=== PATIENT | female | born 1940 | race Asian ===

== ENCOUNTER 2016-05-05 09:33 | Outpatient (CLI) | payer OTHER ==
[~2016-05-05 09:33] MED LIST: ALPR0.2566 PO; AMLO10TA PO; AMLO2.5T PO; BISACODYL LAXAT10 MG RE; CADUET10 MG/10 M PO; CLINDAMYCIN300 MG PO; DIOVAN320 MG PO; DIVA500T2 PO; FENT25DI TD; FERROUS SULF325 M1 PO; FURO40TA93 PO; GABA300C2 PO; INSUINJ20 SC; K-TAB20 MEQ PO; LEVO0.0723 PO; LORCET 5-325 MG1 TAB PO; LORTAB1 TAB PO; METO50TA63 PO; METO5TAB38 PO; MICRO-K10 MEQ OR; MULT1 PO; MYLANTA OR; NOVOLOG MIX 70/30 PR SC; NYST100016 TOP; OMEP20CA PO; ORAZINC110 MG OR; PANT40TA PO; PRAVACHOL20 MG PO; RANI150T78 PO; REQUIP0.25 MG OR; RISP0.25 PO; SENNALAX S PO; SIMV40TA57 PO; VITAMIN D400 UNIT OR; WARF2.5T8 PO; WARF5TAB6 PO; ZINC PO; [UNRECOGNIZED DRUG - OTHER] OR
== END 2016-05-05 19:47 | disposition home or self-care (01) ==
LOC: LAB 09:33
DX: Z79.01 Long term (current) use of anticoagulants (principal); Z51.81 Encounter for therapeutic drug level monitoring
CPT/HCPCS: 85610

== ENCOUNTER 2016-11-19 13:54 | Outpatient (CLI) | payer OTHER ==
[2016-11-19] MEDS ORDERED: ALPR0.5T24 PO (16:11)
[2016-11-19] MEDS ORDERED: FENT25DI TD (16:11)
[2016-11-19] MEDS ORDERED: KETO10TA34 PO (16:12)
[2016-11-19] MEDS ORDERED: FURO40TA93 PO (16:13)
[2016-11-19] MEDS ORDERED: WARF5TAB6 PO (16:16)
[2016-11-19] MEDS ORDERED: WARF3TAB12 PO (16:16)
== END 2016-11-19 14:10 | disposition short-term general hospital (02) ==
LOC: AMB 13:54
DX: R53.1 Weakness (principal)
CPT/HCPCS: A0425; A0427

== ENCOUNTER 2016-11-19 14:18 | Inpatient (IN) | payer OTHER ==
[~2016-11-19] VITALS: Ht 160 cm; Wt 134.4 kg
[2016-11-19] VITALS (19 sets, daily range): BP systolic 91–166; BP diastolic 40–81; TEMP 98.5–99.9; Ht 160 cm; Wt 134.4 kg
[2016-11-19 15:49] LABS: PLATELET COUNT 246 K/uL (152-353)
[2016-11-19] MEDS ORDERED: FENT25DI TD (16:11)
[2016-11-19] MEDS ORDERED: ALPR0.5T24 PO (16:11)
[2016-11-19] MEDS ORDERED: KETO10TA34 PO (16:12)
[2016-11-19] MEDS ORDERED: FURO40TA93 PO (16:13)
[2016-11-19] MEDS ORDERED: WARF5TAB6 PO (16:16)
[2016-11-19] MEDS ORDERED: WARF3TAB12 PO (16:16)
[2016-11-19 16:34] LABS: POTASSIUM 6.4 mmol/L (3.6-5.2)
[2016-11-20] VITALS (8 sets, daily range): BP systolic 99–186; BP diastolic 38–87; TEMP 98.3–100.1
[2016-11-20 05:35] LABS: PLATELET COUNT 189 K/uL (152-353)
[2016-11-20 05:53] LABS: POTASSIUM 5.6 mmol/L (3.6-5.2)
[2016-11-21] VITALS: BP 175/56; TEMP 100.5
[2016-11-21 04:00] VITALS: BP 157/52; TEMP 99.4
[2016-11-21 04:29] LABS: PLATELET COUNT 201 K/uL (152-353)
[2016-11-21 04:36] LABS: POTASSIUM 4.6 mmol/L (3.6-5.2)
[2016-11-21 08:00] VITALS: BP 152/64; TEMP 98.4
[2016-11-21 12:00] VITALS: BP 151/67; TEMP 97.9
[2016-11-21 16:00] VITALS: BP 162/60; TEMP 98.2
[2016-11-21 20:00] VITALS: BP 171/60; TEMP 98.9
[2016-11-22] VITALS (22 sets, daily range): BP systolic 157–190; BP diastolic 48–93; TEMP 98.9–100.8
[2016-11-22 06:08] LABS: PLATELET COUNT 250 K/uL (152-353)
[2016-11-23] VITALS (17 sets, daily range): BP systolic 120–203; BP diastolic 68–97; TEMP 98.7–100
[2016-11-23 05:48] LABS: POTASSIUM 4.7 mmol/L (3.6-5.2)
[2016-11-23 05:49] LABS: PLATELET COUNT 249 K/uL (152-353)
[2016-11-23 06:32] LABS: PARTIAL THROMBOPLASTIN TIME 41.2 SECONDS (24.5-33.6)
[2016-11-24] VITALS (12 sets, daily range): BP systolic 161–199; BP diastolic 61–98; TEMP 98.6–100
[2016-11-24 05:32] LABS: PLATELET COUNT 258 K/uL (152-353)
[2016-11-24 06:19] LABS: POTASSIUM 4.1 mmol/L (3.6-5.2)
[2016-11-24] MEDS ORDERED: NOVOLOG MIX 70/30 PR SC ×2 (12:19→12:22)
[2016-11-24] MEDS ORDERED: INSUINJ47 SC ×2 (12:23)
[2016-11-25] VITALS (17 sets, daily range): BP systolic 148–205; BP diastolic 52–97; TEMP 99.5–100.4
[2016-11-25 05:31] LABS: PLATELET COUNT 275 K/uL (152-353)
[2016-11-25 05:50] LABS: POTASSIUM 4.2 mmol/L (3.6-5.2)
[2016-11-26] VITALS (21 sets, daily range): BP systolic 105–210; BP diastolic 63–126; TEMP 99–100.4
[2016-11-26 06:39] LABS: PLATELET COUNT 268 K/uL (152-353)
[2016-11-26 06:52] LABS: POTASSIUM 3.6 mmol/L (3.6-5.2)
[2016-11-27] VITALS (20 sets, daily range): BP systolic 106–189; BP diastolic 56–103; TEMP 96.5–100.6
[2016-11-27 06:35] LABS: POTASSIUM 3.3 mmol/L (3.6-5.2)
[2016-11-27 06:57] LABS: PLATELET COUNT 277 K/uL (152-353)
[2016-11-28] VITALS (21 sets, daily range): BP systolic 143–185; BP diastolic 57–90; TEMP 98–99
[2016-11-28 05:19] LABS: PLATELET COUNT 255 K/uL (152-353)
[2016-11-28 05:40] LABS: POTASSIUM 3.1 mmol/L (3.6-5.2)
[2016-11-29] VITALS (9 sets, daily range): BP systolic 139–191; BP diastolic 57–89; TEMP 98.4–99.1
[2016-11-29 07:43] LABS: PLATELET COUNT 299 K/uL (152-353)
[2016-11-29 08:07] LABS: POTASSIUM 3.1 mmol/L (3.6-5.2)
[2016-11-30] VITALS: BP 168/59; TEMP 99.2
[2016-11-30 04:00] VITALS: BP 174/52; TEMP 98.8
[2016-11-30 08:00] VITALS: BP 156/55; TEMP 99.4
[2016-11-30 08:00] LABS: PLATELET COUNT 284 K/uL (152-353)
[2016-11-30 11:54] VITALS: BP 187/74; TEMP 99.3
[2016-11-30 15:59] VITALS: BP 182/61; TEMP 98.9
[2016-11-30 20:26] VITALS: BP 184/63; TEMP 99.3
[2016-12-01] VITALS: BP 168/57; TEMP 99.1
[2016-12-01 04:00] VITALS: BP 183/58; TEMP 98.9
[2016-12-01 06:14] LABS: POTASSIUM 2.9 mmol/L (3.6-5.2)
[2016-12-01 06:46] LABS: PLATELET COUNT 336 K/uL (152-353)
[2016-12-01 08:00] VITALS: BP 159/66; TEMP 98
[2016-12-01 12:00] VITALS: BP 192/97; TEMP 97.8
[2016-12-01 16:00] VITALS: BP 136/72; TEMP 98
[2016-12-01 20:00] VITALS: BP 190/62; TEMP 99.4
[2016-12-02] VITALS: BP 161/59; TEMP 99.9
[2016-12-02 04:00] VITALS: BP 142/64; TEMP 99.6
[2016-12-02 06:41] LABS: PLATELET COUNT 337 K/uL (152-353)
[2016-12-02 06:47] LABS: POTASSIUM 3.1 mmol/L (3.6-5.2)
[2016-12-02 08:00] VITALS: BP 190/65; TEMP 98
[2016-12-02 12:00] VITALS: BP 153/76; TEMP 98.3
[2016-12-02 16:00] VITALS: BP 198/77; TEMP 97.8
== END 2016-12-02 17:37 | disposition swing bed (61) | DRG 871 ==
LOC: ED 14:18 → ICU 17:31 → MED/SURG 11-20 16:30 → ICU 11-22 09:10 → MED/SURG 11-29 12:50
PROVIDERS: Emergency Medicine; Internal Medicine; ADMIT Specialist
PROC: 02HV33Z Insertion of Infusion Device into Superior Vena Cava, Percutaneous Approach (ICD-10-PCS; 2016-11-23)
PROC: 30243N1 Transfusion of Nonautologous Red Blood Cells into Central Vein, Percutaneous Approach (ICD-10-PCS; principal; 2016-11-25)
DX: A41.89 Other specified sepsis (principal); J96.02 Acute respiratory failure with hypercapnia; L03.116 Cellulitis of left lower limb; L03.115 Cellulitis of right lower limb; N17.8 Other acute kidney failure; M62.82 Rhabdomyolysis; E87.4 Mixed disorder of acid-base balance; E87.5 Hyperkalemia; I12.9 Hypertensive chronic kidney disease with stage 1 through stage 4 chronic kidney disease, or unspecified chronic kidney disease; N18.3 Chronic kidney disease, stage 3 (moderate); E03.8 Other specified hypothyroidism; E66.01 Morbid (severe) obesity due to excess calories; M15.8 Other polyosteoarthritis; I89.0 Lymphedema, not elsewhere classified; E11.40 Type 2 diabetes mellitus with diabetic neuropathy, unspecified; D64.89 Other specified anemias; E83.42 Hypomagnesemia; E88.09 Other disorders of plasma-protein metabolism, not elsewhere classified; D72.828 Other elevated white blood cell count; B37.2 Candidiasis of skin and nail; E21.2 Other hyperparathyroidism; I50.9 Heart failure, unspecified
CPT/HCPCS: 36415; 36591; 36600; 80048; 80053; 81000; 82043; 82232; 82272; 82306; 82330; 82550; 82553; 82570; 82607; 82728; 82747; 82805; 82948; 82962; 83540; 83550; 83605; 83735; 83880; 83970; 84100; 84165; 84166; 84300; 84443; 84484; 84540; 85027; 85610; 85730; 86318; 86850; 86900; 86901; 86922; 87040; 87077; 87088; 87185; 87186; 87205; 93005; 93306; 94760; 96365; 96366; 96372; 99284; C1751; J0360; J1644; J1885; J1940; J2543; J3475; P9016; P9047

== ENCOUNTER 2016-12-02 17:37 | Inpatient (IN) | payer OTHER ==
[~2016-12-02] VITALS: Ht 160 cm; Wt 140.2 kg
[2016-12-02] VITALS: BP 113/69; TEMP 99.1
[~2016-12-02 17:37] MED LIST changes: +ALPR0.5T24 PO; +INSUINJ47 SC; +KETO10TA34 PO; +WARF3TAB12 PO
[2016-12-03 01:11] VITALS: BP 3/69; TEMP 99.1; Ht 160 cm; Wt 140.2 kg
[2016-12-03 20:00] VITALS: BP 185/70; TEMP 98.4
[2016-12-04 08:00] VITALS: BP 171/75; TEMP 98.4
[2016-12-04 20:00] VITALS: BP 179/64; TEMP 99
[2016-12-05 08:00] VITALS: BP 174/63; TEMP 98.8
[2016-12-05 20:00] VITALS: BP 192/65; TEMP 98.7
[2016-12-07 08:00] VITALS: BP 165/50; TEMP 98.6
[2016-12-07 11:05] LABS: PLATELET COUNT 335 K/uL (152-353)
[2016-12-07 11:26] LABS: POTASSIUM 5.4 mmol/L (3.6-5.2)
[2016-12-07 20:00] VITALS: BP 180/58; TEMP 99
[2016-12-08 09:02] VITALS: BP 176/68; TEMP 98.6
[2016-12-08 21:49] VITALS: BP 134/77; TEMP 98.5
[2016-12-09 05:56] LABS: PLATELET COUNT 281 K/uL (152-353)
[2016-12-09 06:06] LABS: POTASSIUM 4.7 mmol/L (3.6-5.2)
== END 2016-12-09 16:44 | disposition home health service (06) | DRG 556 ==
LOC: MED/SURG 17:37
PROVIDERS: ADMIT Internal Medicine
DX: M62.81 Muscle weakness (generalized) (principal); L03.116 Cellulitis of left lower limb; L03.115 Cellulitis of right lower limb; I50.9 Heart failure, unspecified; I89.0 Lymphedema, not elsewhere classified; N18.3 Chronic kidney disease, stage 3 (moderate)
CPT/HCPCS: 36415; 80053; 82948; 83735; 85027; 85610; 94760; J3475

== ENCOUNTER 2016-12-11 19:11 | Outpatient (CLI) | payer OTHER ==
[2016-12-12 04:06] LABS: POTASSIUM 4.5 mmol/L (3.6-5.2)
== END 2016-12-11 20:09 | disposition home or self-care (01) ==
LOC: LAB 19:11
PROVIDERS: Family Medicine
DX: Z79.01 Long term (current) use of anticoagulants (principal); E87.5 Hyperkalemia; E11.9 Type 2 diabetes mellitus without complications; N18.3 Chronic kidney disease, stage 3 (moderate)
CPT/HCPCS: 80048; 83735; 85014; 85018; 85610

== ENCOUNTER 2017-02-04 17:27 | Outpatient (CLI) | payer OTHER ==
[2017-02-04] MEDS ORDERED: POT CL MICRO20 MEQ OR (17:46)
[2017-02-04] MEDS ORDERED: MAGOX 400400 MG PO (17:47)
[2017-02-04] MEDS ORDERED: FE TABS325 MG OR (17:48)
[2017-02-04] MEDS ORDERED: FURO80TA4 PO (17:49)
[2017-02-04] MEDS ORDERED: AMLO2.5T PO (17:50)
== END 2017-02-04 17:31 | disposition short-term general hospital (02) ==
LOC: AMB 17:27
DX: R06.02 Shortness of breath (principal)
CPT/HCPCS: A0425; A0427

== ENCOUNTER 2017-02-04 17:31 | Inpatient (IN) | payer OTHER ==
[~2017-02-04] VITALS: Ht 160 cm; Wt 144.0 kg
[2017-02-04] MEDS ORDERED: POT CL MICRO20 MEQ OR (17:46)
[2017-02-04] MEDS ORDERED: MAGOX 400400 MG PO (17:47)
[2017-02-04] MEDS ORDERED: FE TABS325 MG OR (17:48)
[2017-02-04] MEDS ORDERED: FURO80TA4 PO (17:49)
[2017-02-04] MEDS ORDERED: AMLO2.5T PO (17:50)
[2017-02-04 17:52] VITALS: BP 224/83; TEMP 98.5
[2017-02-04 18:26] LABS: PLATELET COUNT 188 K/uL (152-353)
[2017-02-04 18:44] LABS: POTASSIUM 5.8 mmol/L (3.6-5.2); SODIUM 130 mmol/L (136-145)
[2017-02-04 23:24] VITALS: BP 167/54; TEMP 101.2; Ht 160 cm; Wt 144.0 kg
[2017-02-05] VITALS: BP 139/79; TEMP 101.1
[2017-02-05 04:00] VITALS: BP 142/61; TEMP 100.2
[2017-02-05 08:00] VITALS: BP 165/56; TEMP 98.8
[2017-02-05 09:41] LABS: PLATELET COUNT 133 K/uL (152-353)
[2017-02-05 10:24] LABS: POTASSIUM 6.1 mmol/L (3.6-5.2)
[2017-02-05 12:00] VITALS: BP 190/60; BP 198/63; TEMP 99; TEMP 99.2
[2017-02-05 16:00] VITALS: BP 198/63; TEMP 99.2
[2017-02-05 20:00] VITALS: BP 183/58; TEMP 98.8
[2017-02-06] VITALS: BP 198/63; TEMP 99.9
[2017-02-06 04:00] VITALS: BP 193/69; TEMP 99.2
[2017-02-06 07:46] LABS: POTASSIUM 5.4 mmol/L (3.6-5.2)
[2017-02-06 08:00] VITALS: BP 172/60; TEMP 98.8
[2017-02-06 08:14] LABS: PLATELET COUNT 142 K/uL (152-353)
[2017-02-06 12:00] VITALS: BP 178/48; TEMP 98.9
[2017-02-06 16:00] VITALS: BP 171/66; TEMP 98.5
[2017-02-06 20:00] VITALS: BP 170/79; TEMP 99
[2017-02-07] VITALS: BP 180/62; TEMP 99
[2017-02-07 04:00] VITALS: BP 170/68; TEMP 98.4
[2017-02-07 07:36] LABS: PLATELET COUNT 116 K/uL (152-353)
[2017-02-07 07:45] LABS: POTASSIUM 4.1 mmol/L (3.6-5.2)
== END 2017-02-07 13:30 | disposition home or self-care (01) | DRG 602 ==
LOC: ED 17:31 → MED/SURG 19:56
PROVIDERS: Specialist
PROC: 30233N1 Transfusion of Nonautologous Red Blood Cells into Peripheral Vein, Percutaneous Approach (ICD-10-PCS; principal; 2017-02-05)
DX: L03.115 Cellulitis of right lower limb (principal); I50.33 Acute on chronic diastolic (congestive) heart failure; N18.4 Chronic kidney disease, stage 4 (severe); E87.5 Hyperkalemia; E66.01 Morbid (severe) obesity due to excess calories; E11.9 Type 2 diabetes mellitus without complications; R07.89 Other chest pain; R06.02 Shortness of breath; E83.42 Hypomagnesemia; D64.89 Other specified anemias; B99.8 Other infectious disease
CPT/HCPCS: 36415; 36591; 36600; 80053; 81000; 82550; 82553; 82805; 82948; 83605; 83735; 83880; 84484; 85027; 85379; 85610; 85730; 86850; 86900; 86901; 86922; 87040; 87077; 87185; 87186; 87205; 93005; 94760; 96367; 96375; 99283; J1940; P9016

== ENCOUNTER 2017-02-16 10:39 | Outpatient (CLI) | payer OTHER ==
[~2017-02-16 10:39] MED LIST changes: +FE TABS325 MG OR; +FURO80TA4 PO; +MAGOX 400400 MG PO; +POT CL MICRO20 MEQ OR
[2017-02-16 11:06] LABS: POTASSIUM 4.2 mmol/L (3.6-5.2)
[2017-02-16 15:36] LABS: PLATELET COUNT 265 K/uL (152-353)
== END 2017-02-16 11:40 | disposition home or self-care (01) ==
LOC: LAB 10:39
PROVIDERS: Internal Medicine Nephrology
DX: I50.9 Heart failure, unspecified (principal); I48.0 Paroxysmal atrial fibrillation; N39.0 Urinary tract infection, site not specified; N18.4 Chronic kidney disease, stage 4 (severe); E11.9 Type 2 diabetes mellitus without complications
CPT/HCPCS: 80053; 81000; 82570; 83970; 84100; 84155; 85007; 85027; 87077; 87086; 87088; 87186

== ENCOUNTER 2017-02-25 10:49 | Outpatient (CLI) | payer OTHER ==
[2017-02-25 11:31] LABS: PLATELET COUNT 240 K/uL (152-353)
[2017-02-25 12:02] LABS: POTASSIUM 4.3 mmol/L (3.6-5.2)
== END 2017-02-25 11:50 | disposition home or self-care (01) ==
LOC: LAB 10:49
PROVIDERS: Family Medicine
DX: I48.91 Unspecified atrial fibrillation (principal); I50.22 Chronic systolic (congestive) heart failure; D64.89 Other specified anemias
CPT/HCPCS: 80048; 85027

== ENCOUNTER 2017-03-10 17:46 | Inpatient (IN) | payer OTHER ==
[~2017-03-10] VITALS: Ht 154.9 cm; Wt 130.4 kg
--- NOTE | 2017-03-10 18:18 | NUR ---
1820 PT ASSISTED TO ROOM 1102 VIA WC PER TECH. PT ALERT AND AWAKE. NO ACUTE DISTRESS NTOED.
[2017-03-10 22:24] LABS: PLATELET COUNT 180 K/uL (152-353)
[2017-03-10 22:34] LABS: POTASSIUM 4.1 mmol/L (3.6-5.2)
[2017-03-10 23:05] VITALS: BP 198/79; TEMP 98.8; Ht 154.9 cm; Wt 130.4 kg
[2017-03-11] VITALS: BP 180/78; TEMP 98
[2017-03-11] MEDS ORDERED: WARF4TAB7 PO (03:10)
[2017-03-11] MEDS ORDERED: FURO40TA93 PO (03:11)
[2017-03-11] MEDS ORDERED: ALPR0.5T24 PO (03:16)
[2017-03-11] MEDS ORDERED: NYST100010 TOP (03:20)
[2017-03-11] MEDS ORDERED: LATANOPROST0.005 % OPTH (03:23)
[2017-03-11 04:00] VITALS: BP 168/72; TEMP 98.1
--- NOTE | 2017-03-11 04:47 | NUR ---
03/10/17 AT 2245COLLECTED WOUND CULTURE FROM INNER, RIGHT LOWER LEG(UPPER CALF AREA). NOTE VERY SCANT AMOUNT OF CLEAR DRAINAGE WEEPING FROM LEG.
[2017-03-11 08:00] VITALS: BP 188/69; TEMP 98.9
[2017-03-11 12:00] VITALS: BP 192/85; TEMP 98.3
[2017-03-11 16:00] VITALS: BP 196/58; TEMP 98.3
[2017-03-11 20:00] VITALS: BP 192/76; TEMP 98.7
[2017-03-12] VITALS: BP 194/82; TEMP 98.2
[2017-03-12 04:00] VITALS: BP 196/82; TEMP 98.4
[2017-03-12 05:04] LABS: PLATELET COUNT 170 K/uL (152-353)
--- NOTE | 2017-03-12 06:11 | NUR ---
03/12/[address] GANDHI NOTIFIED OF PT HAVING POSTITIVE BLOOD CULTURE.ALSO NOTIFIED OF LAB PT 17.1,INR 1.62 NO NEW ORDERS RECEIVED.CC
--- NOTE | 2017-03-12 06:30 | NUR ---
03/12/17 [address] JIMENEZ HAS SEEN PT LEG IT IS DRAINING STATED HE NEEDS TO BE NOTIFED AGAIN IF NOT ALREADY SEEN PATIENT I TOLD HER THAT I WILL MAKE SURE THEY GET THE MESSAGE TO FOLLOW UP WITH DR. JIMENEZ ABOUT SEEING THE PATIENT.CC
[2017-03-12 08:00] VITALS: BP 190/81; TEMP 97
[2017-03-12 12:00] VITALS: BP 183/67; TEMP 97.9
[2017-03-12 16:00] VITALS: BP 183/72; TEMP 98
[2017-03-12 20:00] VITALS: BP 140/72; TEMP 97.4
[2017-03-13] VITALS: BP 150/76; TEMP 98.6
[2017-03-13 04:00] VITALS: BP 184/72; TEMP 98.6
[2017-03-13 05:57] LABS: PLATELET COUNT 181 K/uL (152-353)
[2017-03-13 08:00] VITALS: BP 166/67; TEMP 97.5
[2017-03-13 12:00] VITALS: BP 170/78; TEMP 97.6
[2017-03-13 16:00] VITALS: BP 179/74; TEMP 98
[2017-03-13 20:00] VITALS: BP 183/53; TEMP 97.5
[2017-03-14] VITALS (30 sets, daily range): BP systolic 116–195; BP diastolic 48–99; TEMP 93.1–99.2
[2017-03-14 05:14] LABS: PLATELET COUNT 175 K/uL (152-353)
--- NOTE | 2017-03-14 06:45 | NUR ---
PT ARRIVED TO ICU BED 3. PT IS UNCONSCIOUS AT THIS TIME AND DOES NOT RESPOND TO VERBAL STIMULIE. PT WAS ATTACHED TO MONITORS. VS ARE FOLLOWS - PULSE OX - 96%, HR - 70, BP - 159/77. PT IS ON O2 4LPM VIA NC. PT IS USING ACCESSORY MUSCLES FOR BREATHING. PUPILS ARE CONSTIRICTED AND NON RESPONSIVE. STERNUM RUB WAS USED TO TRY TO ATTEMPT TO GET PATIENT TO RESOND. NO RESPONSE FROM PATIENT. BREATH SOUNDS ARE DIMINISED THROUGHOUT BILATERALLY. S1 AND S2 HEART SOUNDS WERE NOTED UPON AUSCULTATION. BOWEL SOUNDS ARE PRESENT IN ALL FOUR QUADRANTS. THERE IS A 22G IV NOTED TO THE RIGHT HAND THAT IS SALINE LOCKED. SKIN TO THE ELBA LE'S ARE ROUGH AND RAISED AND EDEMATOUS. PEDAL PULSES ARE WEAK BILATERALLY.
--- NOTE | 2017-03-14 07:00 | NUR ---
RT AT BEDSIDE TO DRAW ABG
--- NOTE | 2017-03-14 07:04 | NUR ---
RT AT BEDSIDE TO PLACE PT ON BIPAP PER DR. ARCOS'S ORDERS.
--- NOTE | 2017-03-14 07:17 | NUR ---
EKG IN PROCESS
--- NOTE | 2017-03-14 07:17 | NUR ---
DR. BROWN AT BEDSIDE TO SEE PT
[2017-03-14 07:18] LABS: POTASSIUM 4.6 mmol/L (3.6-5.2)
--- NOTE | 2017-03-14 07:40 | NUR ---
16FR SHEETS INSERTED USING ASEPTIC TECH. CLOUDY URINE RETURN
--- NOTE | 2017-03-14 08:10 | NUR ---
BIPAP CHANGES MADE PER R.T. 20/10, FI02 40%
--- NOTE | 2017-03-14 08:15 | NUR ---
DR BROWN AT , FAMILY AT BS
--- NOTE | 2017-03-14 08:21 | NUR ---
ABG REPORTED TO DR. BROWN AT 0810, CHANGED HER BIPAP SETTINGS YO 20/6 AND 40% FIO2. WILL REPEAT ABG IN ONE HOUR.
--- NOTE | 2017-03-14 08:55 | NUR ---
DR BROWN BACK IN TO CHECK PTS LABS
--- NOTE | 2017-03-14 10:25 | NUR ---
DR WHITMORE CALLED, TALKED WITH RT YUDY MIRAMONTES ACT ENGLISH TUTOR R/T ABG RESULTS. TALKED WITH DUSTY MEJÍA RN R/T PT'S STATUS. NEW ORDERS.
--- NOTE | 2017-03-14 11:35 | NUR ---
ATTEMPTED IV INSERTION PER DUSTY LUZ RN , BLANKET WARMER APPLIERD WITH WARMER SETTINGS AT 99 DEGREES. RECTAL TEMP PROBE INTACT. NOTED SMALL < .5CM SKIN TEAR GLUTEAL FOLDS WHEN TURNED WITH SM AMT BRIGHT RED BLEEDING. PRESSURE & STERILE FOLED 4X4 TO SITE. BLEEDING STOPPED. REPORTED TO DR BROWN. NEW ORDERS. BATH WITH THERAWORX.
--- NOTE | 2017-03-14 12:00 | NUR ---
PT'S DAUGHTER EARLENE NOTIFIED OF NEED TO PUT PT ON WARMING BLANKET. LAB IN TO DRAW BC.
--- NOTE | 2017-03-14 12:20 | NUR ---
PT'S DAUGHTER IN TO SEE PT & AT BS.
--- NOTE | 2017-03-14 15:00 | NUR ---
PT ON L SIDE,HOB UP,PT MOVING HANDS AT INTERVALS. NO VERBALIZATIONS. FROWNS. WHEN MOVEN. RECTAL TEMP 94.6.
--- NOTE | 2017-03-14 16:08 | NUR ---
PT RESTING IN LF, FEET ELEVATED ON PILLOWS.,PULLED ARM AWAY & TRIED TO TALK WHEN BLOOD WAS DRAWN.PERICARE.
--- NOTE | 2017-03-14 18:20 | NUR ---
PT'S DAUGHTER CALLED TO CK ON PT'S STATUS.UPDATE GIVEN.
--- NOTE | 2017-03-14 18:23 | NUR ---
REPORTED TO DR WHITMORE PT'S STATUS OF OUTPUT OF 200CC URINE. REPORTED PT'S TEMP 96.6 6 TEMP. REPORTED PT'S STATUS OF TRYING TO PULL OFF BIPAP MASK & PT'S STATING 'LEAVE IT OFF A WHILE' WHEN MASK REMOVED BRIEFLY FOR MOUTH CARE. NO NEW ORDERS AT THIS TIME. PT BACK TO SLEEP ON BIPAP SAME SETTINGS.
--- NOTE | 2017-03-14 19:00 | NUR ---
PT RESTING QUIETLY ON BIPAP SAME SETTINGS, REPORT TO PM SHIFT.
--- NOTE | 2017-03-14 21:08 | NUR ---
03/14/17 AT 2014PT'S DAUGHTER AND OTHER FAMILY MEMBERS AT BEDSIDE WITH PT.
[2017-03-15] VITALS (24 sets, daily range): BP systolic 88–198; BP diastolic 63–97; TEMP 99.1–100.6
--- NOTE | 2017-03-15 04:25 | NUR ---
LATE ENTRY: DURING ADMIT ON 03/10/2017 2200 PT WAS ASKED ABOUT ALLERGIES, PT STATES SHE IS NOT ALLERGIC TO ZOCOR AND IT IS ONE OF HER HOME MEDICATIONS.
--- NOTE | 2017-03-15 04:46 | NUR ---
PT DOES NOT OPEN EYES, DOES RESPOND TO NOXIOUS STIMULI, WHEN NURSING STAFF REPOSITIONED PT'S LEGS AFTER BEING TURNED PT MUMBLED FOR STAFF TO LEAVE HER LEGS ALONE. PT GRABS PULSE OX TUBING AT TIMES AND HOLDS ON TO IT. WILL CONTINUE TO MONITOR CLOSELY.
--- NOTE | 2017-03-15 06:12 | NUR ---
03/15/2017 AT 0130MOUTH CARE COMPLETED, PT RESISTED AND SHOOK HEAD SOME.
[2017-03-15 06:13] LABS: POTASSIUM 4.3 mmol/L (3.6-5.2)
--- NOTE | 2017-03-15 06:18 | NUR ---
PT'S LIPS/MOUTH WIPED CLEAN WITH WET CLOTH, MOUTH CARE COMPLETED AND PT ALLOWED TERMITE EXTERMINATOR HELPER TO SWAB HER MOUTH WITH MOUTH WASH, LIP MOISTURIZER APPLIED. WILL MONITOR CLOSELY.
[2017-03-15 06:19] LABS: PLATELET COUNT 166 K/uL (152-353)
--- NOTE | 2017-03-15 06:19 | NUR ---
RECEIVED CALL FROM LAB WITH CRITICAL LAB VALUE OF CREATINE 3.6
--- NOTE | 2017-03-15 10:00 | NUR ---
DR WILKINSON AT BEDSIDE, NEW ORDERS AT THIS TIME.
--- NOTE | 2017-03-15 10:23 | NUR ---
VISITOR AT BS.
--- NOTE | 2017-03-15 10:58 | NUR ---
ATTEMPT TO ARROUSE PT SUCCESSFUL WHEN NOXIOUS STIMULI PERFORMED ATTEMPT TO TAKE PT OFF OF BI PAP TO PERFORM ORAL CARE, PTS 02 DROPPED TO 71% NOTIFIED CHIQUITA GUZMÁN PULVERIZER OPERATOR. PT BACK ON BIPAP AT THIS TIME AND 02 BACK AT 96%
--- NOTE | 2017-03-15 12:00 | NUR ---
PT BATHED AND BED LINENS CHANGED
--- NOTE | 2017-03-15 12:15 | NUR ---
SPOKE WITH PATIENTS DAUGHTER ABOUT PT CONDITION, INFOMRED OF NEW ORDERS. DAUGHTER IS COMING TO FACILITY TO SIGN CONSENTS FOR BLOOD. PT IS AROUSABLE BY PAIN AND NOXIOUS STIMULI TURNED PT ON LEFT SIDE
--- NOTE | 2017-03-15 13:43 | NUR ---
DR GANHDI HERE TO SEE PT. PT CONSULTED WITH DR FITZPATRICK ON THE PHONE AT THIS TIME
--- NOTE | 2017-03-15 14:30 | NUR ---
DR WILKINSON AT TALKING WITH FAMILY AND DR GANDHI.
--- NOTE | 2017-03-15 15:15 | NUR ---
15:15-16:15- URNINE OUTPUT OF [address] GANDHI- NO RESPONSE
--- NOTE | 2017-03-15 16:15 | NUR ---
15:15-16:15 URNINE OUTPUT OF [address] GANDHI- NO RESPONSE
--- NOTE | 2017-03-15 18:57 | NUR ---
DR GANDHI CALLED, UPDATED ON PTS STATUS AND VITAL SIGNS, NO NEW ORDERS AT THIS TIME.
--- NOTE | 2017-03-15 20:27 | NUR ---
FAMILY AT BEDSIDE.
[2017-03-16] VITALS (26 sets, daily range): BP systolic 115–194; BP diastolic 48–90; TEMP 98–100.7
--- NOTE | 2017-03-16 | NUR ---
PT WAS REPOSITIONED TO HER LEFT SIDE. PT MORE ALERT AND GROANS WHEN MOVED. LOWER EXT ARE ELEVATED ON PILLOW. ORAL CARE WAS GIVEN.
--- NOTE | 2017-03-16 03:02 | NUR ---
PT RECEIVING 2ND UNIT OF PRBC'S. PT RESTING WITH EYES CLOSED AND WEARING BIPAP. PT WAS GIVEN ORAL CARE. LIPS LUBRICATED WITH PETROLEUM GEL. CM WITH SR. HEELS FLOATING.
--- NOTE | 2017-03-16 03:43 | NUR ---
REPOSITIONED PT TO LEFT SIDE. PRBC INFUSION COMPLETED. PT TOLERATED WITHOUT ANY ADVERSE REACTION NOTED. ORAL CARE GIVEN. PT DOES RESPOND TO STIMULATION.
--- NOTE | 2017-03-16 07:10 | NUR ---
TYLENO RECTAL SUPP GIVEN FOR ELEVATED TEMP 100.2.
--- NOTE | 2017-03-16 08:05 | NUR ---
AM ASSESSEMENT DONE PT RESTING IN BED EYES CLOSED TEMP 100.[address] SHEETS PATENT VOIDING LARGE AMOUNT 200 HR CLEAR URINE EDEMA ARMS HANDS AND LOWER EXT. DIMISHED BREATH SOUNDS THROUGH OUT LUNG HARO WEARING BIPAP SAT 99%. PT HUMMING FRUCT SONGS.
[2017-03-16 09:25] LABS: PLATELET COUNT 161 K/uL (152-353)
[2017-03-16 09:35] LABS: POTASSIUM 3.8 mmol/L (3.6-5.2)
--- NOTE | 2017-03-16 10:00 | NUR ---
DR GANDHI CALLED RECIEVED REPORT PT CONDITION AND LAB REPORTS. RECIEVED NEW ORDERS PT RESTING SINGING SONG, TEEMP 100.[address] PL[address] LASIX DRIP CONTINUES AT 20 ML HR. PT VOIDING WELL.
--- NOTE | 2017-03-16 11:15 | NUR ---
PT RECIEVED 1 AMP D50 ORDERED. PT TURNED TO RIGHT SIDE CHECKED SKIN, SKIN TRYING TO SLOUGH OFF BUTTOCKS NOTED A LITTLE BLEEDING. KEATON CARE DONE PT ALERT TALKING THROUGH BIPAP. LASIX DRIP CONTINUES AT 20 MG HR. CALLED TO SURGERY ATTEMPT TO FIND OUT WHEN DR JIMENEZ CAN PLACE TRIPLE LUMEN LINE. PT HAS ONLY ONE IV LEFT RIGHT HAND SWELLING TO BOTH HANDS HASN'T CHANGED SINCE THIS AM.
--- NOTE | 2017-03-16 11:25 | NUR ---
PT TRYING TO TALK THROUGH BIPAP, EXPLAINED TO PT THAT I WILL REMOVED MASK NEED FOR HER TO BREATH DEEP. BIPAP OFF CHANGED TO NC HUMIDIFIED AT 4 L SAT 96% HOB UP MONITOR CLOSELY
--- NOTE | 2017-03-16 11:57 | NUR ---
SAT 93 - 94% ON 4 L NC. HOB UP TAKING SIPS OF WATER MOVED UP IN BED DR JIMENEZ CALLED CHECK PT STATUS. REPORT THAT PT STILL NEEDS LINE FOR IV ACCESS.
--- NOTE | 2017-03-16 13:40 | NUR ---
DR GANDHI VISITED CHECKED PT RECIEVED NEW ORDERS. FAMILY MEMBERS AT BEDSIDE PT UP IN BED EATING LUNCH MAGAN WELL SAT 96% O2 AT 4L NC. EATING WELL. RECIEVED NEW ORDERS.
--- NOTE | 2017-03-16 14:25 | NUR ---
PT REPOSITIONED RIGHT SIDE. RESP DEPT HERE ECHO DONE. REPOSITIONED IN BED.
--- NOTE | 2017-03-16 15:23 | NUR ---
PT BACK ON LEFT SIDE STATED THAT SHE NEEDED TO GO TO BR. ASSSIT PT WITH BEDPAN. PASSED LARGE FORMED STOOL SKIN CARE KEATON CARE DONE. RESTING ON LEFT SIDE C/O PAINS LEFT SHOULDER,BACK, AND HIPS PT RECIEVED HYDROCODONE 1 TAB PO FOR PAIN.
--- NOTE | 2017-03-16 16:25 | NUR ---
DR JIMENEZ HERE. SPOKE WITH PT AND DAUGHTER, OK WITH GETTING A CENTRAL LINE FOR MEDS AND BLOOD DRAWS. DAUGHTER FRANCES LI SIGN CONSENT. EXPLAINED PROCEDURES TO PATIENT, PLACED GOWN AREA CLEANED BY DR JIMENEZ ONE STICK RIGHT SIDE OF NECK GOOD BLOOD RETURN CATH INSERTED EASILY. AREA SECURED CLEANED APPLIED DRESSING. ORDERED CHEST X RAY PT MAGAN WELL.
--- NOTE | 2017-03-16 17:15 | NUR ---
DR JIMENEZ BACK CHECKED X RAY OK TO USE LINES. MOVED LASIX DRIP TO ONE PORT FLUSHED ALL OTHER LINES NOTED SMALL AMOUNT BLOOD AROUND CATH SITE REPORTED TO DR JIMENEZ, STATED THAT IT COULD BE EXPECTED. APPLIED TAPE OVER DRESSING. WILL MONITOR. PT'S BED CHANGED SPONGED OFF CHANGED GOWN. PT INC OF LARGE STOOL. KEATON CARE RECTAL TEMP PROBE OUT DIRTY WILL LEAVE OUT. NOTED SOME BLEEDING WHEN PT WIPED RECTUM. SKIN VERY THIN. APPLIED PROTECTIVE BARRIER AFTER CLEANING WILL KEEP PT OFF BACK.
--- NOTE | 2017-03-16 17:55 | NUR ---
RESTING QUIETLY EYES CLOSED AX TEMP 98.5. CONTINUE TO MONITOR RIGHT SIDE OF NECK CENTRAL LINE BLOOD UNDER TAPE . SLOWED DOWN. DR JIMENEZ AWARE.
--- NOTE | 2017-03-16 18:16 | NUR ---
UP IN BED ASSIST WITH DINNER TRAY FED PT ATE 10% AND DRANK HER TEA.
--- NOTE | 2017-03-16 19:30 | NUR ---
RCD PT AWAKE WATCHING TV CENTRAL DRESSING CHANGED RCW MONITOR SR O2 AT 4L N/C SHEETS/HOURLEY CLEAR 150/HR R LEG DRAINAGE POSTERIOR CALF EDEMA SKIN DRY AND PEELING. LEFT LEG EDEMA DRY ELEVATED ON PILLOW HEELS SUSPENDED. LUNGS DIMINISED WITH ABDOMINAL BREATHING. DENIES PAIN OR SOB AT THIS TIME. UPPER ARMS BRUISING AND EDEMA. EXCORIATED AREA IN GROIN/UNDER BREAST WASHED NYSTOP APPLIED KEATON CARE GIVEN MAGAN WELL
--- NOTE | 2017-03-16 20:00 | NUR ---
FAMILY AT BEDSIDE AWAKE MAGAN LQDS PO ALERT VS WITH FAMILY.
--- NOTE | 2017-03-16 20:51 | NUR ---
TURNED AND REPOSITIONED LASIX GTT CONTINUES MONITOR SR ARMS ELEVATED ON PILLOWS.CONT TO WATCH TV.TEMP 98.8 A
--- NOTE | 2017-03-16 21:48 | NUR ---
DOZING EYES CLOSED O2 SAT 98 % LASIX GTT CONT OUT 125CC
[2017-03-17] VITALS (22 sets, daily range): BP systolic 118–199; BP diastolic 52–139; TEMP 97.6–100.2
--- NOTE | 2017-03-17 00:04 | NUR ---
RT GIVEN O2 AT 4L AWAKE C/O PAIN SHOULER HYDROCODONE GIVEN DRANK 120CC SPRITE REPOSITIONED LASIX CONT AT 5CC/5 MG OUT 100CC CLEAR URINE
--- NOTE | 2017-03-17 02:00 | NUR ---
RELIEF EYES CLOSEDRESTING
--- NOTE | 2017-03-17 04:33 | NUR ---
DR ALVAREZ CALLED ORDERED UA NA /CREAT SPEC TO LAB
--- NOTE | 2017-03-17 06:28 | NUR ---
,CHEST XRAY DONE,LAB DRAW TO LAB MAGAN
[2017-03-17 06:57] LABS: PLATELET COUNT 160 K/uL (152-353)
--- NOTE | 2017-03-17 07:00 | NUR ---
REPORT FROM PM STAFF. PT RESTING WITH EYES CLOSED, DOZING AT INTERVALS, AWAKE & SINGING AT INTERVALS. ORIENTED TO SELF & PLACE.
[2017-03-17 07:41] LABS: POTASSIUM 3.6 mmol/L (3.6-5.2)
--- NOTE | 2017-03-17 08:45 | NUR ---
DR GANDHI IN TO SEE PT. NEW ORDERS. INSULIN DRIP STOPPED.
--- NOTE | 2017-03-17 09:00 | NUR ---
FED PT 75% OF MEAL. COMPLAINING ABOUT 'NO SCHROEDER' ON MY TRAY. EXPLAINED DIET TO PT.
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
--- NOTE | 2017-03-17 13:55 | NUR ---
PT WITH ELEVATED BP. REPORTE TO DR GANDHI.NEW ORDERS.
--- NOTE | 2017-03-17 16:00 | NUR ---
ORDERD PO MEDS GIVED TO PT,PT VERY SUSPICIIOUS ABOUT MEDS & HAD TO LOOK AT THEM & ASKED WHAT THEY EACH WERE. C/O PAIN IN L ARM & HAND AGAIN REFUSED PAIN MED AGAIN. ELEVATED ON A PILLOW,POSITIONED FOR COMFORT. PT STATES 'THATS BETTER'.
--- NOTE | 2017-03-17 17:00 | NUR ---
PT WITH BS 183. PT REFUSED INSULIN AT THIS TIME REFUSED SS INSULIN.
[2017-03-18] VITALS (17 sets, daily range): BP systolic 172–217; BP diastolic 59–80; TEMP 98.3–101.2
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
--- NOTE | 2017-03-18 02:35 | NUR ---
03/17/17 AT 2230EMPTIED 850ML OF CLEAR, YELLOW URINE FROM SHEETS.
--- NOTE | 2017-03-18 02:36 | NUR ---
03/17/17 AT 2345NOTE 300ML MORE OF URINE IN SHEETS.
--- NOTE | 2017-03-18 02:38 | NUR ---
NOTE APPROX 400-500 ML OF URINE IN SHEETS. WILL MONITOR.
--- NOTE | 2017-03-18 05:40 | NUR ---
300ML MORE OF URINE OUTPUT NOTED VIA SHEETS.
[2017-03-18 06:11] LABS: PLATELET COUNT 149 K/uL (152-353)
[2017-03-18 06:39] LABS: POTASSIUM 3.1 mmol/L (3.6-5.2)
--- NOTE | 2017-03-18 07:15 | NUR ---
CALL PLACED TO PT'S DAUGHTER LORE COOK REGARDING CONTACTING ROSELINE GANDHI ABOUT HOME O2 CONCENTRATOR. LORE STATES THAT SHE WILL CONTACT HIM TODAY.
--- NOTE | 2017-03-18 08:15 | NUR ---
DR GANDHI AT BEDSIDE TO SEE PT AND DR WILKINSON PRESENT IN ICU REVIEWING PT'S CHART.
--- NOTE | 2017-03-18 09:22 | NUR ---
INFORMBED BY UNIQUE THAT PT IS GOING TO RM 1110 ON MED/SURG AND DAFNE EFREN WILL BE NURSE AND WILL CALL FOR REPORT WHEN READY. PT AWARE THAT SHE IS BEING TRANSFERRED OUT AND IS GLAD. PT STATES THAT SHE WANTS TO BE HOME BY THANKSGIVING.
--- NOTE | 2017-03-18 11:15 | NUR ---
REPORT RECIEVED FROM VINNY RN. PT TRANSFERRED FROM ICU TO M/S FLOOR AT THIS TIME VIA STRETCHER. ASSESSMENT COMPLETE AND NAD NOTED. PT HAS NO PROBLEMS OR QUESTIONS AT THIS TIME. CENTRAL LINE INTACT. WILL CONT TO MONITOR PT.
--- NOTE | 2017-03-18 11:15 | NUR ---
REPORT GIVEN TO KENN SCHWARTZ RN. PT TAKEN TO MED/SURG AWAKE AND ALERT AND IN NO ACUTE DISTRESS.
[2017-03-19] VITALS: BP 196/59; TEMP 99.5
[2017-03-19 05:21] LABS: PLATELET COUNT 161 K/uL (152-353)
[2017-03-19 05:41] LABS: POTASSIUM 3.3 mmol/L (3.6-5.2)
[2017-03-19 08:00] VITALS: BP 186/67; TEMP 99
[2017-03-19 12:00] VITALS: BP 198/75; TEMP 98.3
--- NOTE | 2017-03-19 13:35 | NUR ---
PHYSICAL THERAPY IN TO EVALUATE PATIENT THIS MORNING, PT ABLE TO SIT UP ON SIDE OF BED, DID NOT STAND, NAD NOTED, NO C/O VOICED. PT BACK IN BED WITH HEAD AND FEET ELEVATED
[2017-03-19 16:00] VITALS: BP 180/67; TEMP 98.5
[2017-03-20] VITALS: BP 175/54; TEMP 99.2
--- NOTE | 2017-03-20 00:04 | NUR ---
03/20/17 SITTING UP IN BED EATING CEREAL NAD NOTED.CC
[2017-03-20 04:00] VITALS: BP 150/59; TEMP 97.8
[2017-03-20 04:12] LABS: PLATELET COUNT 161 K/uL (152-353)
[2017-03-20 05:06] LABS: POTASSIUM 4.2 mmol/L (3.6-5.2)
--- NOTE | 2017-03-20 06:36 | NUR ---
03/20/17 0615 AROUSED UPON ENTRY TO ROOM PT RESTING WITH EYES CLOSED REFUSED TO BE REPOSTIONED AT THIS NAD NOTED.CC
[2017-03-20 08:00] VITALS: BP 143/53; TEMP 98.2
[2017-03-20 12:24] VITALS: BP 157/46; TEMP 98.2
--- NOTE | 2017-03-20 13:00 | NUR ---
SPOKE WITH DR GANDHI ABOUT PT. INSTRUCTED TO START WEANING PT DOWN ON 02. 02 TURNED TO 2L AT THIS TIME PER NC. SAT STAYED 98-99%. WILL CHECK 02 FREQUENTLY.
--- NOTE | 2017-03-20 14:15 | NUR ---
PT 02 SAT 99 ON 2L PER NC AT THIS ITME
[2017-03-20 16:00] VITALS: BP 184/64; TEMP 98.8
--- NOTE | 2017-03-20 16:00 | NUR ---
CALLED PHARM IN REFERENCE TO MAGNESIUM DUE TO NO 100ML BAGS AVAILABLE. PER PHARM OK TO MIX 2G MAG IN 50CC NS AND RUN OVER 2 HOURS.
--- NOTE | 2017-03-20 17:19 | NUR ---
PT 02 SAT 99% 2L MC. FAMILY AT BS. NAD NOTED.
[2017-03-20 20:00] VITALS: BP 188/74; TEMP 98.5
[2017-03-21] VITALS: BP 206/65; TEMP 99.3
--- NOTE | 2017-03-21 00:23 | NUR ---
03/21/17 0010 REPOSTIONED NAD NOTED.CC
[2017-03-21 04:00] VITALS: BP 189/75; TEMP 98.6
[2017-03-21 05:49] LABS: POTASSIUM 4.7 mmol/L (3.6-5.2)
[2017-03-21 06:14] LABS: PLATELET COUNT 170 K/uL (152-353)
[2017-03-21 08:00] VITALS: BP 165/50; TEMP 98.3
--- NOTE | 2017-03-21 11:30 | NUR ---
PT UP TO BSC AT THIS TIME. BM AT THIS TIME. PT RECEIVED BATH AT THIS TIME. SHEETS CARE COMPLETED WELL. PT TOLERATED WELL. NEW LINENS AND GOWN PROVIDED.
[2017-03-21 12:00] VITALS: BP 170/64; TEMP 98.4
[2017-03-21 16:00] VITALS: BP 184/68; TEMP 98.7
[2017-03-21 20:00] VITALS: BP 215/68; TEMP 98.8
--- NOTE | 2017-03-21 23:54 | NUR ---
03/21/17 5306 CATHERTER UNCLAMPED PT SAID SHE FELT THE URGE TO VOID.CC
[2017-03-22] VITALS: BP 192/77; TEMP 98.5
--- NOTE | 2017-03-22 01:25 | NUR ---
03/22/17 0040 RECLAMPED SHEETS CATHETER.REPSOTIONED IN BED NO C/O VOICED.CC
--- NOTE | 2017-03-22 03:32 | NUR ---
03/22/17 0330 SHEETS CATHETER UNCLAMPED.RESTING WITH EYES CLOSED NAD NOTED.CC
--- NOTE | 2017-03-22 03:47 | NUR ---
03/22/17 0350 SHEETS CATHETER RECLAMPED.CC
[2017-03-22 04:00] VITALS: BP 180/69; TEMP 98.4
[2017-03-22 06:13] LABS: POTASSIUM 4.5 mmol/L (3.6-5.2)
[2017-03-22 08:00] VITALS: BP 185/75; TEMP 97.9
[2017-03-22 10:54] LABS: PLATELET COUNT 178 K/uL (152-353)
--- NOTE | 2017-03-22 11:45 | NUR ---
PT SITTING UP ON SIDE OF BED EATING LUNCH AT THIS TIME
[2017-03-22 12:00] VITALS: BP 158/83; TEMP 98
--- NOTE | 2017-03-22 12:57 | NUR ---
PT REFUSED BATH
[2017-03-22 16:00] VITALS: BP 184/84; TEMP 98.2
[2017-03-23 06:13] LABS: POTASSIUM 4.7 mmol/L (3.6-5.2)
[2017-03-23 06:15] LABS: PLATELET COUNT 197 K/uL (152-353)
== END 2017-03-22 17:20 | disposition swing bed (61) | DRG 602 ==
LOC: MED/SURG 17:46 → ICU 03-14 06:47 → MED/SURG 03-18 09:26
PROVIDERS: Emergency Medicine; Internal Medicine; Pediatrics; ADMIT Family Medicine
PROC: 5A09457 Assistance with Respiratory Ventilation, 24-96 Consecutive Hours, Continuous Positive Airway Pressure (ICD-10-PCS; 2017-03-14)
PROC: 30233N1 Transfusion of Nonautologous Red Blood Cells into Peripheral Vein, Percutaneous Approach (ICD-10-PCS; principal; 2017-03-15)
PROC: 05HM33Z Insertion of Infusion Device into Right Internal Jugular Vein, Percutaneous Approach (ICD-10-PCS; 2017-03-16)
PROC: B543ZZA Ultrasonography of Right Jugular Veins, Guidance (ICD-10-PCS; 2017-03-16)
DX: L03.115 Cellulitis of right lower limb (principal); J96.22 Acute and chronic respiratory failure with hypercapnia; I50.31 Acute diastolic (congestive) heart failure; Z68.43 Body mass index [BMI] 50.0-59.9, adult; E87.4 Mixed disorder of acid-base balance; J44.1 Chronic obstructive pulmonary disease with (acute) exacerbation; I13.2 Hypertensive heart and chronic kidney disease with heart failure and with stage 5 chronic kidney disease, or end stage renal disease; N18.5 Chronic kidney disease, stage 5; B96.5 Pseudomonas (aeruginosa) (mallei) (pseudomallei) as the cause of diseases classified elsewhere; B95.7 Other staphylococcus as the cause of diseases classified elsewhere; I89.0 Lymphedema, not elsewhere classified; E66.01 Morbid (severe) obesity due to excess calories; Z71.3 Dietary counseling and surveillance; K21.9 Gastro-esophageal reflux disease without esophagitis; Z79.01 Long term (current) use of anticoagulants; E11.42 Type 2 diabetes mellitus with diabetic polyneuropathy; E03.8 Other specified hypothyroidism; G25.81 Restless legs syndrome; R41.82 Altered mental status, unspecified; R55 Syncope and collapse; R62.7 Adult failure to thrive; E87.6 Hypokalemia; D53.9 Nutritional anemia, unspecified; E83.41 Hypermagnesemia; I48.91 Unspecified atrial fibrillation; E11.22 Type 2 diabetes mellitus with diabetic chronic kidney disease
CPT/HCPCS: 36415; 36571; 36591; 36600; 51702; 80048; 80053; 81000; 82550; 82570; 82728; 82805; 82948; 82962; 83540; 83550; 83735; 83880; 84100; 84300; 84466; 84484; 85027; 85379; 85610; 85730; 86850; 86900; 86901; 86922; 87040; 87070; 87077; 87088; 87185; 87186; 87205; 93005; 93306; 94668; 94760; 96372; C1751; C1768; J0713; J1650; J1940; J2270; J2405; J3370; J3475; J3490; J7060; P9016

== ENCOUNTER 2017-03-22 17:20 | Inpatient (IN) | payer OTHER ==
[~2017-03-22] VITALS: Ht 154.9 cm; Wt 124.8 kg
[~2017-03-22 17:20] MED LIST changes: +LATANOPROST0.005 % OPTH; +NYST100010 TOP; +WARF4TAB7 PO
[2017-03-23 00:24] VITALS: BP 145/86; TEMP 98.8; Ht 154.9 cm; Wt 124.8 kg
[2017-03-24 08:00] VITALS: BP 160/58; TEMP 98.4
[2017-03-25 05:23] LABS: PLATELET COUNT 205 K/uL (152-353)
[2017-03-25 06:02] LABS: POTASSIUM 5.1 mmol/L (3.6-5.2)
[2017-03-25 08:00] VITALS: BP 195/61; TEMP 98.5
[2017-03-25 20:24] VITALS: BP 193/79; TEMP 98.8
[2017-03-26 20:00] VITALS: BP 150/78; TEMP 98.2
[2017-03-27 08:12] VITALS: BP 194/65; TEMP 97.6
[2017-03-27 20:01] VITALS: BP 173/60; TEMP 98.7
[2017-03-28 08:00] VITALS: BP 174/67; TEMP 98.5
[2017-03-28 19:57] VITALS: BP 192/65; TEMP 98.7
[2017-03-29 06:32] LABS: POTASSIUM 5.2 mmol/L (3.6-5.2)
[2017-03-29 06:40] LABS: PLATELET COUNT 224 K/uL (152-353)
[2017-03-30 08:00] VITALS: BP 161/60; TEMP 98.5
[2017-03-31 20:26] VITALS: BP 160/82; TEMP 98.2
[2017-04-01 05:44] LABS: PLATELET COUNT 210 K/uL (152-353)
[2017-04-01 05:55] LABS: POTASSIUM 5.3 mmol/L (3.6-5.2)
[2017-04-01 08:00] VITALS: BP 161/62; TEMP 98.8
[2017-04-01 20:00] VITALS: BP 160/55; TEMP 98.3
[2017-04-02 08:00] VITALS: BP 179/63; TEMP 98.5
== END 2017-04-02 15:00 | disposition home or self-care (01) | DRG 556 ==
LOC: MED/SURG 17:20
PROVIDERS: ADMIT Family Medicine
DX: M62.81 Muscle weakness (generalized) (principal); N18.4 Chronic kidney disease, stage 4 (severe); L03.115 Cellulitis of right lower limb; R06.02 Shortness of breath; I12.9 Hypertensive chronic kidney disease with stage 1 through stage 4 chronic kidney disease, or unspecified chronic kidney disease; E11.22 Type 2 diabetes mellitus with diabetic chronic kidney disease; D53.9 Nutritional anemia, unspecified; J44.9 Chronic obstructive pulmonary disease, unspecified; Z79.01 Long term (current) use of anticoagulants
CPT/HCPCS: 36415; 80053; 82948; 83735; 85027; 85610; 90658; 94760; J1815

== ENCOUNTER 2017-04-05 14:59 | Outpatient (CLI) | payer OTHER ==
[2017-04-05 15:28] LABS: PLATELET COUNT 191 K/uL (152-353)
[2017-04-05 16:05] LABS: POTASSIUM 3.7 mmol/L (3.6-5.2)
== END 2017-04-05 16:00 | disposition home or self-care (01) ==
LOC: LAB 14:59
PROVIDERS: Internal Medicine Nephrology
DX: N18.4 Chronic kidney disease, stage 4 (severe) (principal); D63.1 Anemia in chronic kidney disease; I48.0 Paroxysmal atrial fibrillation
CPT/HCPCS: 80053; 82728; 82746; 83540; 83550; 85027

== ENCOUNTER 2017-04-08 10:39 | Outpatient (CLI) | payer OTHER ==
[2017-04-08 11:05] LABS: PLATELET COUNT 189 K/uL (152-353)
[2017-04-08 11:15] LABS: POTASSIUM 3.9 mmol/L (3.6-5.2)
== END 2017-04-08 19:09 | disposition home or self-care (01) ==
LOC: LAB 10:39
PROVIDERS: Family Medicine
DX: N18.2 Chronic kidney disease, stage 2 (mild) (principal); I50.9 Heart failure, unspecified
CPT/HCPCS: 80053; 85027

== ENCOUNTER 2017-04-12 11:14 | Outpatient (CLI) | payer OTHER ==
[2017-04-12 11:27] LABS: PLATELET COUNT 180 K/uL (152-353)
[2017-04-12 17:41] LABS: POTASSIUM 4.2 mmol/L (3.6-5.2)
== END 2017-04-12 19:20 | disposition home or self-care (01) ==
LOC: LAB 11:14
PROVIDERS: Family Medicine
DX: I12.9 Hypertensive chronic kidney disease with stage 1 through stage 4 chronic kidney disease, or unspecified chronic kidney disease (principal); N18.4 Chronic kidney disease, stage 4 (severe); E87.5 Hyperkalemia
CPT/HCPCS: 80053; 85027

== ENCOUNTER 2017-04-15 12:22 | Outpatient (CLI) | payer OTHER ==
[2017-04-15 13:15] LABS: PLATELET COUNT 195 K/uL (152-353)
[2017-04-15 15:14] LABS: POTASSIUM 4.6 mmol/L (3.6-5.2)
== END 2017-04-15 13:25 | disposition home or self-care (01) ==
LOC: LAB 12:22
PROVIDERS: Family Medicine
DX: I12.9 Hypertensive chronic kidney disease with stage 1 through stage 4 chronic kidney disease, or unspecified chronic kidney disease (principal); N18.2 Chronic kidney disease, stage 2 (mild); I48.91 Unspecified atrial fibrillation
CPT/HCPCS: 80053; 85027

== ENCOUNTER 2017-04-19 13:20 | Outpatient (CLI) | payer OTHER ==
[2017-04-19 14:04] LABS: PLATELET COUNT 210 K/uL (152-353)
== END 2017-04-19 14:20 | disposition home or self-care (01) ==
LOC: LAB 13:20
PROVIDERS: Family Medicine
DX: D64.89 Other specified anemias (principal); I12.9 Hypertensive chronic kidney disease with stage 1 through stage 4 chronic kidney disease, or unspecified chronic kidney disease; N18.2 Chronic kidney disease, stage 2 (mild); I50.9 Heart failure, unspecified
CPT/HCPCS: 80053; 85027

== ENCOUNTER 2017-04-29 11:49 | Outpatient (CLI) | payer OTHER ==
[2017-04-29 12:01] LABS: PLATELET COUNT 214 K/uL (152-353)
[2017-04-29 12:10] LABS: POTASSIUM 5.6 mmol/L (3.6-5.2)
== END 2017-04-29 22:33 | disposition home or self-care (01) ==
LOC: LAB 11:49
PROVIDERS: Family Medicine
DX: N18.4 Chronic kidney disease, stage 4 (severe) (principal)
CPT/HCPCS: 80053; 85027

== ENCOUNTER 2017-05-07 10:07 | Outpatient (CLI) | payer OTHER ==
[~2017-05-07 10:07] MED LIST changes: -FE TABS325 MG OR; +FE TABS325 MG PO
[2017-05-07 10:36] LABS: POTASSIUM 4.9 mmol/L (3.6-5.2)
[2017-05-07 10:46] LABS: PLATELET COUNT 167 K/uL (152-353)
[2017-09-02] MEDS ORDERED: ALAVERT10 M2 PO (15:47)
== END 2017-05-08 05:18 | disposition home or self-care (01) ==
LOC: LAB 10:07
PROVIDERS: Family Medicine
DX: N18.4 Chronic kidney disease, stage 4 (severe) (principal)
CPT/HCPCS: 80053; 85027

== ENCOUNTER 2017-05-12 13:36 | Outpatient (CLI) | payer OTHER ==
[2017-05-12 14:19] LABS: PLATELET COUNT 172 K/uL (152-353)
[2017-05-12 14:28] LABS: POTASSIUM 4.4 mmol/L (3.6-5.2)
[2017-09-02] MEDS ORDERED: ALAVERT10 M2 PO (15:47)
== END 2017-05-12 19:40 | disposition home or self-care (01) ==
LOC: LAB 13:36
PROVIDERS: Family Medicine
DX: I50.9 Heart failure, unspecified (principal); N18.2 Chronic kidney disease, stage 2 (mild)
CPT/HCPCS: 80053; 85027

== ENCOUNTER 2017-05-16 15:21 | Outpatient (CLI) | payer OTHER ==
[2017-05-16] MEDS ORDERED: AMLODIPINE BESYLATE PO (16:06)
[2017-05-16] MEDS ORDERED: FURO40TA93 PO (16:07)
[2017-05-16] MEDS ORDERED: WARF5TAB6 PO (16:09)
[2017-05-16] MEDS ORDERED: ROPINIROLE0.25 MG PO (16:11)
[2017-05-16] MEDS ORDERED: VITAMIN D50000 UNT PO (16:13)
[2017-05-16] MEDS ORDERED: DIOVAN320 MG PO (16:14)
[2017-05-16] MEDS ORDERED: POTA20TA4 PO (16:16)
[2017-09-02] MEDS ORDERED: ALAVERT10 M2 PO (15:47)
== END 2017-05-16 15:23 | disposition short-term general hospital (02) ==
LOC: AMB 15:21
DX: R51 Headache (principal); R25.8 Other abnormal involuntary movements
CPT/HCPCS: A0425; A0427

== ENCOUNTER 2017-05-16 15:32 | Emergency (ER) | payer OTHER ==
[~2017-05-16] VITALS: Ht 160 cm; Wt 122.0 kg
[2017-05-16] MEDS ORDERED: AMLODIPINE BESYLATE PO (16:06)
[2017-05-16] MEDS ORDERED: FURO40TA93 PO (16:07)
[2017-05-16] MEDS ORDERED: WARF5TAB6 PO (16:09)
[2017-05-16] MEDS ORDERED: ROPINIROLE0.25 MG PO (16:11)
[2017-05-16] MEDS ORDERED: VITAMIN D50000 UNT PO (16:13)
[2017-05-16] MEDS ORDERED: DIOVAN320 MG PO (16:14)
[2017-05-16] MEDS ORDERED: POTA20TA4 PO (16:16)
[2017-05-16 16:40] LABS: POTASSIUM 4.2 mmol/L (3.6-5.2)
[2017-05-16 17:56] LABS: PLATELET COUNT 210 K/uL (152-353)
[2017-05-16 18:16] LABS: PARTIAL THROMBOPLASTIN TIME 34.1 SECONDS (24.5-33.6)
[2017-05-16 19:43] VITALS: BP 179/99; TEMP 99.1
[2017-09-02] MEDS ORDERED: ALAVERT10 M2 PO (15:47)
== END 2017-05-16 19:43 | disposition home or self-care (01) ==
LOC: ED 15:32
PROVIDERS: Specialist
DX: J18.9 Pneumonia, unspecified organism (principal); G25.2 Other specified forms of tremor; L03.116 Cellulitis of left lower limb; I82.409 Acute embolism and thrombosis of unspecified deep veins of unspecified lower extremity
CPT/HCPCS: 36415; 80048; 85027; 85610; 85730; 87040; 87804; 96372; 99283; J0696

== ENCOUNTER 2017-05-19 15:30 | Outpatient (CLI) | payer OTHER ==
[~2017-05-19 15:30] MED LIST changes: +AMLODIPINE BESYLATE PO; +POTA20TA4 PO; +ROPINIROLE0.25 MG PO; +VITAMIN D50000 UNT PO
[2017-05-19 15:54] LABS: PLATELET COUNT 150 K/uL (152-353)
[2017-05-19 16:18] LABS: POTASSIUM 3.9 mmol/L (3.6-5.2)
[2017-09-02] MEDS ORDERED: ALAVERT10 M2 PO (15:47)
== END 2017-05-19 19:58 | disposition home or self-care (01) ==
LOC: LAB 15:30
PROVIDERS: Family Medicine
DX: I50.22 Chronic systolic (congestive) heart failure (principal); N18.4 Chronic kidney disease, stage 4 (severe)
CPT/HCPCS: 80053; 85027

== ENCOUNTER → 2017-05-26 13:44 | Outpatient (CLI) | payer OTHER ==
[~2017-05-26 13:44] MED LIST changes: +ALAVERT10 M2 PO; +ASCO500T18 PO
[2017-05-26 14:08] LABS: PLATELET COUNT 327 K/uL (152-353)
[2017-05-26 14:39] LABS: POTASSIUM 4.4 mmol/L (3.6-5.2)
== END | disposition home or self-care (01) ==
LOC: LAB 13:44
PROVIDERS: Family Medicine
DX: N18.4 Chronic kidney disease, stage 4 (severe) (principal); I50.9 Heart failure, unspecified; I48.91 Unspecified atrial fibrillation
CPT/HCPCS: 80053; 85027

== ENCOUNTER 2017-06-01 10:10 | Outpatient (CLI) | payer OTHER ==
[~2017-06-01 10:10] MED LIST changes: -ALAVERT10 M2 PO; -ASCO500T18 PO
[2017-06-01 10:33] LABS: PLATELET COUNT 331 K/uL (152-353)
[2017-06-01 10:44] LABS: POTASSIUM 4.4 mmol/L (3.6-5.2)
[2017-09-02] MEDS ORDERED: ALAVERT10 M2 PO (15:47)
== END 2017-06-01 23:03 | disposition home or self-care (01) ==
LOC: LAB 10:10
PROVIDERS: Family Medicine
DX: N18.4 Chronic kidney disease, stage 4 (severe) (principal); I50.22 Chronic systolic (congestive) heart failure
CPT/HCPCS: 80053; 85027

== ENCOUNTER 2017-06-09 13:14 | Outpatient (CLI) | payer OTHER ==
[2017-06-09 13:37] LABS: POTASSIUM 4.5 mmol/L (3.6-5.2)
[2017-06-09 13:56] LABS: PLATELET COUNT 202 K/uL (152-353)
[2017-09-02] MEDS ORDERED: ALAVERT10 M2 PO (15:47)
== END 2017-06-09 19:24 | disposition home or self-care (01) ==
LOC: LAB 13:14
PROVIDERS: Family Medicine
DX: I50.9 Heart failure, unspecified (principal); N18.2 Chronic kidney disease, stage 2 (mild)
CPT/HCPCS: 80053; 85027

== ENCOUNTER 2017-06-15 14:56 | Inpatient (IN) | payer OTHER ==
[~2017-06-15] VITALS: Ht 160 cm; Wt 123.9 kg
[2017-06-15 15:40] VITALS: BP 186/66; TEMP 98.9; Ht 160 cm; Wt 123.9 kg
[2017-06-15 18:05] LABS: PLATELET COUNT 192 K/uL (152-353)
[2017-06-15 18:20] LABS: POTASSIUM 3.9 mmol/L (3.6-5.2)
[2017-06-15 20:00] VITALS: BP 188/74; TEMP 98.2
[2017-06-16] VITALS: BP 179/57; TEMP 98.2
[2017-06-16 04:00] VITALS: BP 150/54; TEMP 98.8
[2017-06-16 08:00] VITALS: BP 165/47; TEMP 98.8
[2017-06-16 12:23] VITALS: BP 195/74; TEMP 98.8
[2017-06-16 16:00] VITALS: BP 177/63; TEMP 98.6
[2017-06-16 20:00] VITALS: BP 191/69; TEMP 98.7
[2017-06-17] VITALS: BP 198/80; TEMP 98.5
[2017-06-17 04:00] VITALS: BP 174/59; TEMP 98.8
[2017-06-17 05:27] LABS: PLATELET COUNT 166 K/uL (152-353)
[2017-06-17 05:43] LABS: POTASSIUM 3.9 mmol/L (3.6-5.2)
[2017-06-17 08:00] VITALS: BP 132/54; TEMP 99.2
[2017-06-17 12:00] VITALS: BP 170/83; TEMP 98.7
[2017-06-17 16:00] VITALS: BP 180/65; TEMP 98.6
[2017-06-17 20:00] VITALS: BP 154/64; TEMP 98.6
[2017-06-18] VITALS: BP 176/63; TEMP 98.8
[2017-06-18 04:00] VITALS: BP 160/50; TEMP 98.9
[2017-06-18 05:43] LABS: PLATELET COUNT 165 K/uL (152-353)
[2017-06-18 05:56] LABS: POTASSIUM 4.1 mmol/L (3.6-5.2)
[2017-06-18 08:00] VITALS: BP 113/56; TEMP 99.2
[2017-06-18 12:00] VITALS: BP 133/64; TEMP 98.8
[2017-06-18 16:00] VITALS: BP 172/80; TEMP 98.8
[2017-06-18 20:23] VITALS: BP 195/76; TEMP 99.3
[2017-06-19 00:18] VITALS: BP 121/55; TEMP 99.8
[2017-06-19 04:00] VITALS: BP 185/65; TEMP 99.5
[2017-06-19 05:25] LABS: PLATELET COUNT 182 K/uL (152-353)
[2017-06-19 08:00] VITALS: BP 186/74; TEMP 99.4
[2017-06-19 12:00] VITALS: BP 188/72; TEMP 99
[2017-06-19 16:00] VITALS: BP 188/70; TEMP 97.4
[2017-06-19 20:14] VITALS: BP 162/60; TEMP 98.4
[2017-06-20 00:17] VITALS: BP 118/64; TEMP 98.6
[2017-06-20 04:45] VITALS: BP 102/52; TEMP 98.8
[2017-06-20 06:13] LABS: POTASSIUM 3.9 mmol/L (3.6-5.2)
[2017-06-20 06:20] LABS: PLATELET COUNT 190 K/uL (152-353)
[2017-06-20 08:00] VITALS: BP 189/69; TEMP 97.9
[2017-06-20 12:00] VITALS: BP 152/69; TEMP 97.8
[2017-09-02] MEDS ORDERED: ALAVERT10 M2 PO (15:47)
== END 2017-06-20 17:10 | disposition home or self-care (01) | DRG 603 ==
LOC: MED/SURG 14:56
PROVIDERS: ADMIT Family Medicine
DX: L03.116 Cellulitis of left lower limb (principal); N18.4 Chronic kidney disease, stage 4 (severe); I89.0 Lymphedema, not elsewhere classified; E11.22 Type 2 diabetes mellitus with diabetic chronic kidney disease; I12.9 Hypertensive chronic kidney disease with stage 1 through stage 4 chronic kidney disease, or unspecified chronic kidney disease; E66.01 Morbid (severe) obesity due to excess calories; Z79.01 Long term (current) use of anticoagulants; D64.89 Other specified anemias; B96.4 Proteus (mirabilis) (morganii) as the cause of diseases classified elsewhere; E03.8 Other specified hypothyroidism
CPT/HCPCS: 36415; 80053; 80202; 82948; 84443; 85027; 85610; 85730; 87040; 87070; 87077; 87186; 87205; 96367; J1956; J1815

== ENCOUNTER 2017-06-21 15:02 | Outpatient (CLI) | payer OTHER ==
[2017-09-02] MEDS ORDERED: ALAVERT10 M2 PO (15:47)
== END 2017-06-21 20:08 | disposition home or self-care (01) ==
LOC: INF 15:02
DX: L03.116 Cellulitis of left lower limb (principal)
CPT/HCPCS: 96365; J0696

== ENCOUNTER 2017-06-22 10:25 | Outpatient (CLI) | payer OTHER ==
[~2017-06-22] VITALS: Ht 160 cm; Wt 115.7 kg
[2017-06-22 10:15] VITALS: BP 131/67; BP 136/94; TEMP 98.2
[2017-06-22 11:12] LABS: PLATELET COUNT 204 K/uL (152-353)
[2017-06-22 11:50] VITALS: BP 147/87
[2017-06-22 16:09] LABS: POTASSIUM 4.1 mmol/L (3.6-5.2); SODIUM 142.9 mmol/L (136-145)
[2017-09-02] MEDS ORDERED: ALAVERT10 M2 PO (15:47)
== END 2017-06-22 11:55 | disposition home or self-care (01) ==
LOC: INF 10:25 → LAB 10:25 → INF 11:55
PROVIDERS: Family Medicine
DX: N18.2 Chronic kidney disease, stage 2 (mild) (principal); I50.9 Heart failure, unspecified; I10 Essential (primary) hypertension
CPT/HCPCS: 80053; 85027; 96365; J0696

== ENCOUNTER 2017-06-23 10:35 | Outpatient (CLI) | payer OTHER ==
[~2017-06-23] VITALS: Ht 160 cm; Wt 52.4 kg
[2017-09-02] MEDS ORDERED: ALAVERT10 M2 PO (15:47)
== END 2017-06-23 18:44 | disposition home or self-care (01) ==
LOC: INF 10:35
DX: L03.116 Cellulitis of left lower limb (principal)
CPT/HCPCS: 96365; J0696

== ENCOUNTER 2017-06-28 13:45 | Outpatient (CLI) | payer OTHER ==
[2017-06-28 14:14] LABS: PLATELET COUNT 170 K/uL (152-353)
[2017-06-28 14:20] LABS: POTASSIUM 3.7 mmol/L (3.6-5.2)
[2017-09-02] MEDS ORDERED: ALAVERT10 M2 PO (15:47)
== END 2017-06-28 20:08 | disposition home or self-care (01) ==
LOC: LAB 13:45
PROVIDERS: Family Medicine
DX: N18.4 Chronic kidney disease, stage 4 (severe) (principal); I50.89 Other heart failure
CPT/HCPCS: 80053; 85027

== ENCOUNTER 2017-07-05 12:21 | Outpatient (CLI) | payer OTHER ==
[2017-07-05 13:29] LABS: PLATELET COUNT 257 K/uL (152-353)
[2017-07-05 14:12] LABS: POTASSIUM 4.2 mmol/L (3.6-5.2)
[2017-09-02] MEDS ORDERED: ALAVERT10 M2 PO (15:47)
== END 2017-07-05 19:21 | disposition home or self-care (01) ==
LOC: LAB 12:21
PROVIDERS: Family Medicine
DX: I50.22 Chronic systolic (congestive) heart failure (principal); N18.4 Chronic kidney disease, stage 4 (severe)
CPT/HCPCS: 80053; 85027

== ENCOUNTER 2017-07-12 11:20 | Outpatient (CLI) | payer OTHER ==
[2017-07-12 12:12] LABS: PLATELET COUNT 224 K/uL (152-353)
[2017-07-12 12:21] LABS: POTASSIUM 4.1 mmol/L (3.6-5.2)
[2017-09-02] MEDS ORDERED: ALAVERT10 M2 PO (15:47)
== END 2017-07-12 21:32 | disposition home or self-care (01) ==
LOC: LAB 11:20
PROVIDERS: Family Medicine
DX: I12.9 Hypertensive chronic kidney disease with stage 1 through stage 4 chronic kidney disease, or unspecified chronic kidney disease (principal); N18.2 Chronic kidney disease, stage 2 (mild); D64.89 Other specified anemias; I50.9 Heart failure, unspecified
CPT/HCPCS: 80053; 85027

== ENCOUNTER 2017-07-19 13:27 | Outpatient (CLI) | payer OTHER ==
[2017-07-19 13:54] LABS: PLATELET COUNT 159 K/uL (152-353)
[2017-07-19 15:32] LABS: POTASSIUM 4.2 mmol/L (3.6-5.2)
[2017-09-02] MEDS ORDERED: ALAVERT10 M2 PO (15:47)
== END 2017-07-19 19:27 | disposition home or self-care (01) ==
LOC: LAB 13:27
PROVIDERS: Family Medicine
DX: I12.9 Hypertensive chronic kidney disease with stage 1 through stage 4 chronic kidney disease, or unspecified chronic kidney disease (principal); N18.4 Chronic kidney disease, stage 4 (severe); I50.9 Heart failure, unspecified
CPT/HCPCS: 80053; 85027

== ENCOUNTER 2017-07-27 12:40 | Outpatient (CLI) | payer OTHER ==
[2017-07-27 13:21] LABS: PLATELET COUNT 209 K/uL (152-353)
[2017-07-27 14:14] LABS: POTASSIUM 4.1 mmol/L (3.6-5.2)
[2017-09-02] MEDS ORDERED: ALAVERT10 M2 PO (15:47)
== END 2017-07-27 22:56 | disposition home or self-care (01) ==
LOC: LAB 12:40
PROVIDERS: Family Medicine
DX: N18.4 Chronic kidney disease, stage 4 (severe) (principal); I50.9 Heart failure, unspecified
CPT/HCPCS: 80053; 85027

== ENCOUNTER 2017-08-03 14:41 | Outpatient (CLI) | payer OTHER ==
[2017-08-03 15:14] LABS: PLATELET COUNT 203 K/uL (152-353)
[2017-08-03 15:16] LABS: POTASSIUM 4.5 mmol/L (3.6-5.2)
[2017-09-02] MEDS ORDERED: ALAVERT10 M2 PO (15:47)
== END 2017-08-03 22:57 | disposition home or self-care (01) ==
LOC: LAB 14:41
PROVIDERS: Family Medicine
DX: N18.4 Chronic kidney disease, stage 4 (severe) (principal); I50.9 Heart failure, unspecified
CPT/HCPCS: 80053; 85027

== ENCOUNTER 2017-08-10 10:16 | Outpatient (CLI) | payer OTHER ==
[2017-08-10 10:47] LABS: PLATELET COUNT 181 K/uL (152-353)
[2017-08-10 10:58] LABS: POTASSIUM 4.5 mmol/L (3.6-5.2)
[2017-09-02] MEDS ORDERED: ALAVERT10 M2 PO (15:47)
== END 2017-08-10 21:57 | disposition home or self-care (01) ==
LOC: LAB 10:16
PROVIDERS: Family Medicine
DX: N18.4 Chronic kidney disease, stage 4 (severe) (principal); I50.22 Chronic systolic (congestive) heart failure
CPT/HCPCS: 80053; 85027

== ENCOUNTER 2017-08-18 13:33 | Outpatient (CLI) | payer OTHER ==
[2017-08-18 14:28] LABS: PLATELET COUNT 179 K/uL (152-353)
[2017-08-18 14:31] LABS: POTASSIUM 4.3 mmol/L (3.6-5.2)
[2017-09-02] MEDS ORDERED: ALAVERT10 M2 PO (15:47)
== END 2017-08-18 20:57 | disposition home or self-care (01) ==
LOC: LAB 13:33
PROVIDERS: Family Medicine
DX: N18.2 Chronic kidney disease, stage 2 (mild) (principal); I50.9 Heart failure, unspecified
CPT/HCPCS: 80053; 85027

== ENCOUNTER 2017-09-01 12:42 | Outpatient (CLI) | payer OTHER ==
[~2017-09-01 12:42] MED LIST changes: +FE TABS325 MG OR; -FE TABS325 MG PO
[2017-09-01 13:41] LABS: PLATELET COUNT 204 K/uL (152-353)
[2017-09-01 13:58] LABS: POTASSIUM 4.4 mmol/L (3.6-5.2)
[2017-09-02] MEDS ORDERED: ASCO500T18 PO (15:45)
[2017-09-02] MEDS ORDERED: ALAVERT10 M2 PO (15:47)
== END 2017-09-01 21:41 | disposition home or self-care (01) ==
LOC: LAB 12:42
PROVIDERS: Family Medicine
DX: I50.9 Heart failure, unspecified (principal); N18.2 Chronic kidney disease, stage 2 (mild)
CPT/HCPCS: 80053; 85027

== ENCOUNTER 2017-09-02 08:34 | Outpatient (CLI) | payer OTHER ==
[~2017-09-02 08:34] MED LIST changes: -FE TABS325 MG OR; +FE TABS325 MG PO
[2017-09-02] MEDS ORDERED: ASCO500T18 PO (15:45)
[2017-09-02] MEDS ORDERED: ALAVERT10 M2 PO ×2 (15:47)
== END 2017-09-02 08:56 | disposition short-term general hospital (02) ==
LOC: AMB 08:34
DX: R53.1 Weakness (principal); R50.9 Fever, unspecified
CPT/HCPCS: A0425; A0427

== ENCOUNTER 2017-09-02 09:04 | Inpatient (IN) | payer OTHER ==
[~2017-09-02] VITALS: Ht 165.1 cm; Wt 131.1 kg
[2017-09-02] VITALS (7 sets, daily range): BP systolic 156–187; BP diastolic 64–88; TEMP 91–100.8; Ht 165.1 cm; Wt 131.1 kg
[2017-09-02 10:33] LABS: PLATELET COUNT 187 K/uL (152-353)
[2017-09-02 10:36] LABS: POTASSIUM 4.3 mmol/L (3.6-5.2)
[2017-09-02] MEDS ORDERED: ASCO500T18 PO (15:45)
[2017-09-02] MEDS ORDERED: ALAVERT10 M2 PO ×2 (15:47)
[2017-09-03 00:24] VITALS: BP 176/51; TEMP 100.7
[2017-09-03 04:00] VITALS: BP 174/51; TEMP 99.8
[2017-09-03 06:03] LABS: PLATELET COUNT 153 K/uL (152-353)
[2017-09-03 06:05] LABS: POTASSIUM 3.7 mmol/L (3.6-5.2)
[2017-09-03 08:00] VITALS: BP 149/68; TEMP 99.6
[2017-09-03 12:28] VITALS: BP 161/52; TEMP 98.8
[2017-09-03 16:00] VITALS: BP 161/53; TEMP 100
[2017-09-03 20:00] VITALS: BP 1548/48; TEMP 99.5
[2017-09-04] VITALS: BP 1243/47; TEMP 99.9
[2017-09-04 04:00] VITALS: BP 158/44; TEMP 99.9
[2017-09-04 08:19] VITALS: BP 160/54; TEMP 99
[2017-09-04 12:00] VITALS: BP 143/74; TEMP 98.5
[2017-09-04 14:11] LABS: PLATELET COUNT 135 K/uL (152-353)
[2017-09-04 14:43] LABS: POTASSIUM 3.9 mmol/L (3.6-5.2)
[2017-09-04 16:00] VITALS: BP 162/65; TEMP 99.2
[2017-09-04 20:00] VITALS: BP 187/52; TEMP 98.5
[2017-09-05] VITALS: BP 176/55; TEMP 99.8
[2017-09-05 03:54] VITALS: BP 178/56; TEMP 98.8
[2017-09-05 05:57] LABS: PLATELET COUNT 143 K/uL (152-353)
[2017-09-05 06:09] LABS: POTASSIUM 3.7 mmol/L (3.6-5.2)
[2017-09-05 08:00] VITALS: BP 199/62; TEMP 100.1
[2017-09-05 12:08] VITALS: BP 196/65; TEMP 98.6
[2017-09-05 16:06] VITALS: BP 185/56; TEMP 98.7
[2017-09-05 20:00] VITALS: BP 195/70; TEMP 98.1
[2017-09-06] VITALS (8 sets, daily range): BP systolic 128–196; BP diastolic 45–83; TEMP 98.9–100.2
[2017-09-06 04:03] LABS: PLATELET COUNT 144 K/uL (152-353)
[2017-09-07] VITALS: BP 158/78; TEMP 99.8
[2017-09-07 04:24] VITALS: BP 176/62; TEMP 98.8
[2017-09-07 06:13] LABS: PLATELET COUNT 166 K/uL (152-353)
== END 2017-09-07 10:30 | disposition home health service (06) | DRG 872 ==
LOC: ED 09:04 → MED/SURG 11:00
PROVIDERS: Family Medicine; ADMIT Family Medicine
PROC: 0T9B70Z Drainage of Bladder with Drainage Device, Via Natural or Artificial Opening (ICD-10-PCS; principal; 2017-09-03)
DX: A41.89 Other specified sepsis (principal); N18.4 Chronic kidney disease, stage 4 (severe); R41.82 Altered mental status, unspecified; D72.828 Other elevated white blood cell count; E11.22 Type 2 diabetes mellitus with diabetic chronic kidney disease; I12.9 Hypertensive chronic kidney disease with stage 1 through stage 4 chronic kidney disease, or unspecified chronic kidney disease; E66.01 Morbid (severe) obesity due to excess calories; D50.8 Other iron deficiency anemias; E11.42 Type 2 diabetes mellitus with diabetic polyneuropathy; E03.8 Other specified hypothyroidism; M41.80 Other forms of scoliosis, site unspecified; E83.42 Hypomagnesemia
CPT/HCPCS: 36415; 36430; 51702; 80048; 80053; 81000; 82550; 82948; 83605; 83735; 84100; 84484; 85027; 85610; 86850; 86900; 86901; 86922; 87040; 94640; 94664; 94668; 94760; 96361; 96365; 96367; 96374; 99284; J1956; J0696; J1940; J2543; J3475; J3490; P9016

== ENCOUNTER 2017-09-10 15:35 | Outpatient (CLI) | payer OTHER ==
[~2017-09-10 15:35] MED LIST changes: +ALAVERT10 M2 PO; +ASCO500T18 PO
== END 2017-09-10 15:38 | disposition short-term general hospital (02) ==
LOC: AMB 15:35
DX: R52 Pain, unspecified (principal)
CPT/HCPCS: A0425; A0429

== ENCOUNTER 2017-09-14 13:38 | Outpatient (CLI) | payer OTHER | END 2017-09-14 13:41 | disposition short-term general hospital (02) | LOC: AMB 13:38 | DX: R53.1 Weakness (principal) | CPT/HCPCS: A0425; A0429 ==

== ENCOUNTER 2017-09-14 13:41 | Inpatient (IN) | payer OTHER ==
[~2017-09-14] VITALS: Ht 160 cm; Wt 129.8 kg
[2017-09-14 13:45] VITALS: BP 157/99; TEMP 97.2
[2017-09-14 14:22] LABS: PLATELET COUNT 315 K/uL (152-353)
[2017-09-14 14:34] LABS: POTASSIUM 4.9 mmol/L (3.6-5.2)
[2017-09-14 15:25] LABS: PARTIAL THROMBOPLASTIN TIME 50.7 SECONDS (24.5-33.6)
[2017-09-14 19:05] VITALS: BP 186/59; TEMP 98.8; Ht 160 cm; Wt 129.8 kg
[2017-09-14 20:00] VITALS: BP 179/57; TEMP 98.6
[2017-09-15 01:10] VITALS: BP 134/53; TEMP 98.8
[2017-09-15 05:25] LABS: PLATELET COUNT 293 K/uL (152-353)
[2017-09-15 05:40] LABS: POTASSIUM 5.2 mmol/L (3.6-5.2)
[2017-09-15 05:45] VITALS: BP 146/52; TEMP 97.7
--- NOTE | 2017-09-15 07:16 | NUR ---
09/15/17 0552 LAB CALLED WITH CRITICAL LAB: CREATININE 6.8 DR. GANDHI WAS NOTIFIED AND GAVE NEW ORDER FOR RENAL DIET.
[2017-09-15 07:17] LABS: PARTIAL THROMBOPLASTIN TIME 51.6 SECONDS (24.5-33.6)
[2017-09-15 08:53] VITALS: BP 142/39; TEMP 98.2
--- NOTE | 2017-09-15 13:00 | NUR ---
18F SHEETS CATH INSERTED. NO PROBLEMS NOTED.
[2017-09-15 14:03] LABS: PLATELET COUNT 302 K/uL (152-353)
[2017-09-15 17:30] VITALS: BP 178/52; TEMP 98.1
[2017-09-15 20:00] VITALS: BP 186/57; TEMP 98.2
[2017-09-16 05:44] LABS: PLATELET COUNT 294 K/uL (152-353)
[2017-09-16 06:16] LABS: POTASSIUM 5.3 mmol/L (3.6-5.2)
[2017-09-16 06:48] LABS: PARTIAL THROMBOPLASTIN TIME 35.1 SECONDS (24.5-33.6)
[2017-09-16 09:21] VITALS: BP 149/53; TEMP 99.4
[2017-09-16 14:34] VITALS: BP 164/67; TEMP 98.6
[2017-09-16 17:51] VITALS: BP 173/63; TEMP 98.6
[2017-09-16 20:00] VITALS: BP 101/65; TEMP 98.6
[2017-09-16 23:31] LABS: PLATELET COUNT 307 K/uL (152-353)
[2017-09-16 23:37] LABS: POTASSIUM 4.5 mmol/L (3.6-5.2)
[2017-09-17] VITALS: BP 150/49; TEMP 98.8
[2017-09-17 05:17] LABS: PLATELET COUNT 273 K/uL (152-353)
[2017-09-17 05:50] LABS: PARTIAL THROMBOPLASTIN TIME 31.6 SECONDS (24.5-33.6)
[2017-09-17 06:05] LABS: POTASSIUM 4.6 mmol/L (3.6-5.2)
[2017-09-17 08:00] VITALS: BP 175/53; TEMP 98.8
--- NOTE | 2017-09-17 10:01 | NUR ---
PHARMACY CALLED NURSE STATING THAT BACTRIM DS IS CONTRAINDICATED WITH PT CREATNINE OF 6.9. DR GANDHI NOTIFIED AND STATED TO NURSE TO DISCUSS WITH PHARMACY ABOUT CHANGING IT TO CEFLEX.
--- NOTE | 2017-09-17 13:02 | NUR ---
DR GANDHI AT BEDSIDE MAKING ROUNDS. NEW ORDERS RECEIVED TO D/C PT TO SWING BED. SPOKE WITH UR AT THIS TIME ABOUT SWING BED PLACEMENT. UR INSTRUCTED TO CALL PT ABOUT EVALUATION. EVALUATION DONE ON SEPTEMBER 16 WAS INCOMPLETE DUE TO PT NONCOMPLIANCE. LETICIA MICHAELS RN SPOKE TO PT ABOUT REQUIREMENTS FOR SWING BED PLACEMENT. PT AGREEDED TO COMPLIANCE. DR GANDHI NOTIFIED. WILL HAVE TO WAIT TO DO EVALUATION FOR SWING BED PLACEMENT ON Wednesday09-20-17.
--- NOTE | 2017-09-17 15:42 | NUR ---
PT REQUEST ASSISTANCE FOR A PILLOW TO BE PLACED UNDERNEATH BOTTOM. TWO PERSON ASSIST ATTEMPT WITH PT EDUCATED ON HOW TO HELP ASSIST NURSE WITH TRANSFER. PT NONCOMPLIANT.
[2017-09-17 16:30] VITALS: BP 185/59; TEMP 98.5
[2017-09-17 20:00] VITALS: BP 188/56; TEMP 97.8
--- NOTE | 2017-09-17 23:19 | NUR ---
PT PLACED ON HOME BIPAP PER PT REQUEST.
[2017-09-18] VITALS (7 sets, daily range): BP systolic 123–173; BP diastolic 53–68; TEMP 98.3–98.8
--- NOTE | 2017-09-18 13:05 | NUR ---
PT UP TO CHAIR AT THIS TIME. LINENS CHANGED.
--- NOTE | 2017-09-18 23:40 | NUR ---
PLACED PT ON HOME BIPAP PER PT'S REQUEST.
--- NOTE | 2017-09-19 01:16 | NUR ---
PT REQUESTED TO BE REMOVED FROM BIPAP. NURSE ASSISTED PT.
[2017-09-19 03:55] VITALS: BP 154/64; TEMP 98.4
[2017-09-19 08:19] VITALS: BP 143/53; TEMP 98
[2017-09-19 11:45] VITALS: BP 147/49; TEMP 98.7
[2017-09-19 19:57] VITALS: BP 168/62; TEMP 98.1
[2017-09-20] VITALS: BP 152/48; TEMP 99
[2017-09-20 10:03] VITALS: BP 164/50; TEMP 98.4
[2017-09-20 13:34] LABS: POTASSIUM 5.6 mmol/L (3.6-5.2)
--- NOTE | 2017-09-20 16:00 | NUR ---
IV D/C'D. BLADDER TRAINING IN PROGRESS. PT BEING D/C AN IN PATIENT AND READMITTED A SWING BED. D/C INSTRUCTIONS GIVEN. PT HAS NO QUESTIONS.
== END 2017-09-20 15:46 | disposition swing bed (61) | DRG 813 ==
LOC: ED 13:41 → MED/SURG 15:25
PROVIDERS: Family Medicine; ADMIT Family Medicine
PROC: 30233N1 Transfusion of Nonautologous Red Blood Cells into Peripheral Vein, Percutaneous Approach (ICD-10-PCS; principal; 2017-09-16)
DX: D68.32 Hemorrhagic disorder due to extrinsic circulating anticoagulants (principal); N18.4 Chronic kidney disease, stage 4 (severe); T45.515A Adverse effect of anticoagulants, initial encounter; Y92.89 Other specified places as the place of occurrence of the external cause; D64.89 Other specified anemias; E11.22 Type 2 diabetes mellitus with diabetic chronic kidney disease; I12.9 Hypertensive chronic kidney disease with stage 1 through stage 4 chronic kidney disease, or unspecified chronic kidney disease; I25.10 Atherosclerotic heart disease of native coronary artery without angina pectoris; E78.4 Other hyperlipidemia; E11.42 Type 2 diabetes mellitus with diabetic polyneuropathy; K21.9 Gastro-esophageal reflux disease without esophagitis; M41.80 Other forms of scoliosis, site unspecified; E03.8 Other specified hypothyroidism; R53.1 Weakness; R62.7 Adult failure to thrive
CPT/HCPCS: 36415; 36430; 80048; 80053; 82948; 83735; 85027; 85610; 85730; 86850; 86900; 86901; 86922; 94640; 94664; 94668; 94760; 96372; 99283; J1815; J1940; P9016

== ENCOUNTER 2017-09-20 14:30 | Inpatient (IN) | payer OTHER ==
[~2017-09-20] VITALS: Ht 160 cm; Wt 128.8 kg
[2017-09-20 17:59] VITALS: BP 164/50; TEMP 98.4; Ht 160 cm; Wt 128.8 kg
[2017-09-20 19:19] VITALS: BP 168/50; TEMP 98
[2017-09-21 08:00] VITALS: BP 153/42; TEMP 99.1
[2017-09-21 20:00] VITALS: BP 196/59; TEMP 98.7
[2017-09-22 20:00] VITALS: BP 180/72; TEMP 98.2
[2017-09-23 08:31] VITALS: BP 179/53; TEMP 98.9
[2017-09-23 20:00] VITALS: BP 171/60; TEMP 98.3
[2017-09-24 08:48] VITALS: BP 173/50; TEMP 98.7
[2017-09-24 20:00] VITALS: BP 196/100; TEMP 98.3
[2017-09-25 09:22] VITALS: BP 151/52; TEMP 98.3
[2017-09-25 20:00] VITALS: BP 185/72; TEMP 98.6
[2017-09-27 05:40] LABS: PLATELET COUNT 178 K/uL (152-353)
[2017-09-27 05:58] LABS: POTASSIUM 5.1 mmol/L (3.6-5.2)
[2017-09-27 08:00] VITALS: BP 152/54; TEMP 98.6
[2017-09-27 20:00] VITALS: BP 117/65; TEMP 98.3
[2017-09-28 06:38] LABS: PLATELET COUNT 162 K/uL (152-353)
[2017-09-28 08:15] VITALS: BP 188/72; TEMP 98.6
[2017-09-28 20:00] VITALS: BP 126/66; TEMP 98.9
[2017-09-29 09:22] VITALS: BP 196/63; TEMP 98.6
[2017-09-29 20:20] VITALS: BP 191/59; TEMP 98.6
[2017-09-30 09:10] VITALS: BP 179/52; TEMP 98
== END 2017-09-30 16:45 | disposition home or self-care (01) | DRG 556 ==
LOC: MED/SURG 14:30
PROVIDERS: ADMIT Family Medicine
DX: M62.81 Muscle weakness (generalized) (principal); N18.4 Chronic kidney disease, stage 4 (severe); N17.8 Other acute kidney failure; R26.89 Other abnormalities of gait and mobility; E66.01 Morbid (severe) obesity due to excess calories; D64.89 Other specified anemias; I89.0 Lymphedema, not elsewhere classified; J44.9 Chronic obstructive pulmonary disease, unspecified
CPT/HCPCS: 36415; 80053; 83735; 85027; 85610; 94760

== ENCOUNTER 2017-10-05 13:29 | Outpatient (CLI) | payer OTHER ==
[2017-10-05 13:48] LABS: PLATELET COUNT 163 K/uL (152-353)
[2017-10-05 14:22] LABS: POTASSIUM 4.4 mmol/L (3.6-5.2)
== END 2017-10-05 22:25 | disposition home or self-care (01) ==
LOC: LAB 13:29
PROVIDERS: Family Medicine
DX: I12.9 Hypertensive chronic kidney disease with stage 1 through stage 4 chronic kidney disease, or unspecified chronic kidney disease (principal); N18.2 Chronic kidney disease, stage 2 (mild); I50.9 Heart failure, unspecified
CPT/HCPCS: 80053; 83735; 85027

== ENCOUNTER 2017-12-02 12:01 | Outpatient (CLI) | payer OTHER ==
[2017-12-02 12:37] LABS: POTASSIUM 4.2 mmol/L (3.6-5.2)
== END 2017-12-02 19:20 | disposition home or self-care (01) ==
LOC: LAB 12:01
PROVIDERS: Family Medicine
DX: I12.9 Hypertensive chronic kidney disease with stage 1 through stage 4 chronic kidney disease, or unspecified chronic kidney disease (principal); N18.4 Chronic kidney disease, stage 4 (severe); I25.10 Atherosclerotic heart disease of native coronary artery without angina pectoris
CPT/HCPCS: 36415; 80048; 83735

== ENCOUNTER 2018-01-10 03:13 | Outpatient (CLI) | payer OTHER | END 2018-01-10 03:15 | disposition short-term general hospital (02) | LOC: AMB 03:13 | DX: R06.02 Shortness of breath (principal); R73.9 Hyperglycemia, unspecified | CPT/HCPCS: A0425; A0427 ==

== ENCOUNTER 2018-01-10 03:26 | Observation (INO) | payer OTHER ==
[2018-01-10] VITALS (7 sets, daily range): BP systolic 162–204; BP diastolic 60–80; TEMP 97.4–98.2; Ht 160 cm; Wt 125.3 kg
[~2018-01-10] VITALS: Ht 160 cm; Wt 125.3 kg
[2018-01-10 04:11] LABS: PLATELET COUNT 155 K/uL (152-353)
[2018-01-10 04:28] LABS: POTASSIUM 3.9 mmol/L (3.6-5.2); SODIUM 141 mmol/L (136-145)
[2018-01-10 04:38] LABS: PARTIAL THROMBOPLASTIN TIME 21.9 SECONDS (24.5-33.6)
[2018-01-11 04:00] VITALS: BP 168/88; TEMP 98.1
[2018-01-11 06:21] LABS: PLATELET COUNT 155 K/uL (152-353)
[2018-01-11 06:45] LABS: POTASSIUM 4.2 mmol/L (3.6-5.2)
[2018-01-11 08:00] VITALS: BP 190/67; TEMP 98.8
[2018-01-11 12:00] VITALS: BP 193/64; TEMP 98.2
[2018-01-11 16:00] VITALS: BP 168/78; TEMP 98.1
[2018-01-11 19:41] LABS: PLATELET COUNT 150 K/uL (152-353)
[2018-01-11 20:00] VITALS: BP 160/74; TEMP 98.2
== END 2018-01-12 00:10 | disposition home or self-care (01) ==
LOC: ED 03:26 → MED/SURG 06:20
PROVIDERS: Internal Medicine; ADMIT Family Medicine
PROC: 02HV33Z Insertion of Infusion Device into Superior Vena Cava, Percutaneous Approach (ICD-10-PCS; 2018-01-10)
PROC: 30243N1 Transfusion of Nonautologous Red Blood Cells into Central Vein, Percutaneous Approach (ICD-10-PCS; principal; 2018-01-11)
DX: D64.89 Other specified anemias (principal); Z79.01 Long term (current) use of anticoagulants; I13.2 Hypertensive heart and chronic kidney disease with heart failure and with stage 5 chronic kidney disease, or end stage renal disease; E11.22 Type 2 diabetes mellitus with diabetic chronic kidney disease; N18.5 Chronic kidney disease, stage 5; I89.0 Lymphedema, not elsewhere classified; R19.7 Diarrhea, unspecified; E11.42 Type 2 diabetes mellitus with diabetic polyneuropathy; E03.8 Other specified hypothyroidism; M41.80 Other forms of scoliosis, site unspecified; I48.91 Unspecified atrial fibrillation
CPT/HCPCS: 36415; 36430; 36571; 80053; 80202; 82550; 82948; 83880; 84484; 85027; 85610; 85730; 86850; 86900; 86901; 86922; 93005; 96374; 96375; 99220; 99283; C1751; G0378; J1940; P9016

== ENCOUNTER 2018-03-01 11:12 | Outpatient (CLI) | payer OTHER | END 2018-03-01 11:15 | disposition short-term general hospital (02) | LOC: AMB 11:12 | DX: M79.605 Pain in left leg (principal) | CPT/HCPCS: A0425; A0429 ==

== ENCOUNTER 2018-03-01 11:22 | Emergency (ER) | payer OTHER ==
[~2018-03-01] VITALS: Ht 160 cm; Wt 125.2 kg
[2018-03-01 11:22] VITALS: TEMP 97.9
[2018-03-01 12:24] LABS: PLATELET COUNT 160 K/uL (152-353)
[2018-03-01 12:30] LABS: POTASSIUM 4.4 mmol/L (3.6-5.2)
[2018-03-01 15:30] VITALS: BP 187/89
== END 2018-03-01 15:30 | disposition home or self-care (01) ==
LOC: ED 11:22
PROVIDERS: Family Medicine
DX: M10.9 Gout, unspecified (principal); L97.428 Non-pressure chronic ulcer of left heel and midfoot with other specified severity; L89.621 Pressure ulcer of left heel, stage 1; N28.9 Disorder of kidney and ureter, unspecified
CPT/HCPCS: 36415; 80053; 84550; 85027; 99283

== ENCOUNTER 2018-03-02 18:37 | Outpatient (CLI) | payer OTHER ==
[2018-03-03] MEDS ORDERED: JANTOVEN3 MG PO (03:01)
[2018-03-03] MEDS ORDERED: BENICAR40 MG PO (03:06)
[2018-03-03] MEDS ORDERED: RANI150T78 PO (03:08)
[2018-03-03] MEDS ORDERED: COLCRYS 0.6MG0.6 MG PO (03:10)
[2018-03-03] MEDS ORDERED: ALLO100T22 PO (03:11)
== END 2018-03-02 18:40 | disposition short-term general hospital (02) ==
LOC: AMB 18:37
DX: J11.1 Influenza due to unidentified influenza virus with other respiratory manifestations (principal)
CPT/HCPCS: A0425; A0429

== ENCOUNTER 2018-03-02 18:43 | Inpatient (IN) | payer OTHER ==
[~2018-03-02] VITALS: Ht 160 cm; Wt 124.5 kg
[2018-03-02 18:43] VITALS: BP 113/74; TEMP 98.2
[2018-03-02 19:40] VITALS: BP 140/80
[2018-03-02 19:46] LABS: PLATELET COUNT 169 K/uL (152-353)
[2018-03-02 20:00] LABS: POTASSIUM 4.3 mmol/L (3.6-5.2)
[2018-03-02 20:40] VITALS: BP 128/84
[2018-03-03] VITALS (7 sets, daily range): BP systolic 142–195; BP diastolic 41–66; TEMP 98.1–99.7; Ht 160 cm; Wt 124.5 kg
[2018-03-03] MEDS ORDERED: JANTOVEN3 MG PO (03:01)
[2018-03-03] MEDS ORDERED: BENICAR40 MG PO (03:06)
[2018-03-03] MEDS ORDERED: RANI150T78 PO (03:08)
[2018-03-03] MEDS ORDERED: COLCRYS 0.6MG0.6 MG PO (03:10)
[2018-03-03] MEDS ORDERED: ALLO100T22 PO (03:11)
[2018-03-04] VITALS (7 sets, daily range): BP systolic 114–186; BP diastolic 50–95; TEMP 97.9–100.1
[2018-03-05 04:00] VITALS: BP 150/63; TEMP 98.9
[2018-03-05 06:58] LABS: PLATELET COUNT 180 K/uL (152-353)
[2018-03-05 07:19] LABS: POTASSIUM 4.5 mmol/L (3.6-5.2)
[2018-03-05 08:22] VITALS: BP 179/56; TEMP 98.9
[2018-03-05 12:05] VITALS: BP 107/60; TEMP 97.6
[2018-03-05 16:24] VITALS: BP 148/58; TEMP 98.9
[2018-03-05 20:00] VITALS: BP 91/60
[2018-03-05 23:44] VITALS: BP 89/64; TEMP 98.5
[2018-03-06 04:00] VITALS: BP 154/52; TEMP 99.1
[2018-03-06 08:08] VITALS: BP 140/50; TEMP 102
[2018-03-06 12:03] VITALS: BP 160/44; TEMP 98.9
[2018-03-06 16:19] VITALS: BP 168/52; TEMP 98
[2018-03-06 20:00] VITALS: BP 156/69; TEMP 99.4
[2018-03-06 23:43] VITALS: BP 152/49; TEMP 98.3
[2018-03-07 04:00] VITALS: BP 148/48; TEMP 98.3
[2018-03-07 07:47] LABS: POTASSIUM 4.6 mmol/L (3.6-5.2)
[2018-03-07 08:01] VITALS: BP 160/46; TEMP 97.9
[2018-03-07 08:13] LABS: PLATELET COUNT 180 K/uL (152-353)
[2018-03-07 08:33] LABS: PARTIAL THROMBOPLASTIN TIME 41.2 SECONDS (24.5-33.6)
[2018-03-07 12:00] VITALS: BP 154/46; TEMP 97.8
== END 2018-03-07 12:40 | disposition short-term general hospital (02) | DRG 291 ==
LOC: ED 18:43 → MED/SURG 20:20
PROVIDERS: Emergency Medicine; ADMIT Family Medicine
PROC: 30253N1 (ICD-10-PCS; principal; 2018-03-02)
DX: I13.0 Hypertensive heart and chronic kidney disease with heart failure and stage 1 through stage 4 chronic kidney disease, or unspecified chronic kidney disease (principal); J96.00 Acute respiratory failure, unspecified whether with hypoxia or hypercapnia; N18.4 Chronic kidney disease, stage 4 (severe); L03.116 Cellulitis of left lower limb; I50.1 Left ventricular failure, unspecified; D50.8 Other iron deficiency anemias; I42.8 Other cardiomyopathies; E11.22 Type 2 diabetes mellitus with diabetic chronic kidney disease; J44.9 Chronic obstructive pulmonary disease, unspecified; Z79.01 Long term (current) use of anticoagulants; E66.01 Morbid (severe) obesity due to excess calories; R60.0 Localized edema; E11.42 Type 2 diabetes mellitus with diabetic polyneuropathy; E03.8 Other specified hypothyroidism; M41.9 Scoliosis, unspecified; L89.621 Pressure ulcer of left heel, stage 1; B96.89 Other specified bacterial agents as the cause of diseases classified elsewhere; R06.03 Acute respiratory distress
CPT/HCPCS: 36415; 36600; 80053; 81000; 82805; 83880; 85014; 85018; 85027; 85610; 85730; 86850; 86900; 86901; 86922; 87040; 87070; 87077; 87088; 87185; 87186; 87205; 87502; 87651; 94640; 94664; 94760; 99283; J0696; J1815; J1940; J2543; J3490; P9016

== ENCOUNTER 2018-03-21 17:55 | Inpatient (IN) | payer OTHER ==
[~2018-03-21] VITALS: Ht 160 cm; Wt 101.2 kg
[~2018-03-21 17:55] MED LIST changes: +ALLO100T22 PO; +BENICAR40 MG PO; +COLCRYS 0.6MG0.6 MG PO; +JANTOVEN3 MG PO
[2018-03-22 01:26] VITALS: BP 156/60; TEMP 98.3; Ht 160 cm; Wt 101.2 kg
[2018-03-22 05:45] LABS: PLATELET COUNT 169 K/uL (152-353)
[2018-03-22 06:02] LABS: POTASSIUM 3.5 mmol/L (3.6-5.2)
[2018-03-22 20:28] VITALS: BP 166/50; TEMP 99.52
[2018-03-23 23:37] VITALS: BP 155/53; TEMP 98.8
[2018-03-24 08:02] VITALS: BP 114/51; TEMP 98.4
[2018-03-24 20:00] VITALS: BP 102/75; TEMP 99.3
[2018-03-25 19:56] VITALS: BP 158/52; TEMP 99.2
[2018-03-26 20:00] VITALS: BP 169/54; TEMP 99.1
[2018-03-27 19:59] VITALS: BP 151/50; TEMP 98.4
[2018-03-28 06:28] LABS: POTASSIUM 3.3 mmol/L (3.6-5.2)
[2018-03-28 06:29] LABS: PLATELET COUNT 247 K/uL (152-353)
[2018-03-28 19:55] VITALS: BP 150/57; TEMP 98.1
[2018-03-29 08:00] VITALS: BP 142/52; TEMP 97.7
[2018-03-29 20:23] VITALS: BP 154/55; TEMP 98.8
[2018-03-30 08:30] VITALS: BP 155/52; TEMP 98.1
[2018-03-30 20:04] VITALS: BP 137/53; TEMP 98.7
[2018-03-31 10:11] VITALS: BP 146/65; TEMP 97.7
[2018-03-31 20:00] VITALS: BP 148/53; TEMP 97.2
[2018-04-01 20:00] VITALS: BP 136/88; TEMP 99.4
[2018-04-02 09:19] VITALS: BP 145/42; TEMP 99
[2018-04-02 20:41] VITALS: BP 168/54; TEMP 99
[2018-04-03 09:56] VITALS: BP 163/55; TEMP 98.8
[2018-04-03 20:00] VITALS: BP 156/51; TEMP 99.5
[2018-04-04 06:43] LABS: PLATELET COUNT 166 K/uL (152-353)
[2018-04-04 07:01] LABS: POTASSIUM 3.4 mmol/L (3.6-5.2)
[2018-04-04 21:18] VITALS: BP 144/46; TEMP 98.1
[2018-04-05 20:07] VITALS: BP 163/53; TEMP 99.5
[2018-04-06 08:06] VITALS: BP 147/45; TEMP 98.7
[2018-04-06 20:00] VITALS: BP 146/53; TEMP 99.4
[2018-04-07 09:06] VITALS: BP 163/45; TEMP 98.7
[2018-04-07 20:00] VITALS: BP 160/55; TEMP 98.6
[2018-04-08 08:02] VITALS: BP 184/64; TEMP 98.7
[2018-04-08 15:27] LABS: PLATELET COUNT 173 K/uL (152-353)
[2018-04-08 15:48] LABS: POTASSIUM 2.6 mmol/L (3.6-5.2)
== END 2018-04-08 17:15 | disposition short-term general hospital (02) | DRG 555 ==
LOC: MED/SURG 17:55
PROVIDERS: ADMIT Family Medicine
DX: M62.81 Muscle weakness (generalized) (principal); N18.6 End stage renal disease; N17.9 Acute kidney failure, unspecified; I12.0 Hypertensive chronic kidney disease with stage 5 chronic kidney disease or end stage renal disease; G47.30 Sleep apnea, unspecified; I10 Essential (primary) hypertension; I25.10 Atherosclerotic heart disease of native coronary artery without angina pectoris; K21.9 Gastro-esophageal reflux disease without esophagitis; E78.49 Other hyperlipidemia; E11.42 Type 2 diabetes mellitus with diabetic polyneuropathy; E03.8 Other specified hypothyroidism; M41.80 Other forms of scoliosis, site unspecified; E11.22 Type 2 diabetes mellitus with diabetic chronic kidney disease; Z99.2 Dependence on renal dialysis; R62.7 Adult failure to thrive; J44.9 Chronic obstructive pulmonary disease, unspecified; D64.89 Other specified anemias
CPT/HCPCS: 36415; 80053; 81000; 83735; 85027; 85610; 87077; 87086; 87088; 87186; 94760; J0696; J1885

== ENCOUNTER → 2018-03-23 09:00 | Outpatient (CLI) | payer OTHER | END | disposition home or self-care (01) | LOC: AMB 09:00 | DX: Z99.2 Dependence on renal dialysis (principal) ==

== ENCOUNTER 2018-04-07 14:26 | Outpatient (CLI) | payer OTHER | END 2018-04-07 23:46 | disposition home or self-care (01) | LOC: LAB 14:26 | DX: D64.89 Other specified anemias (principal) | CPT/HCPCS: 85018 ==

== ENCOUNTER 2018-04-08 17:15 | Inpatient (IN) | payer OTHER ==
[~2018-04-08] VITALS: Ht 160 cm; Wt 100.4 kg
--- NOTE | 2018-04-08 15:00 | NUR ---
PT BROUGHT BACK FROM [facility] AT THIS TIME VIA STRETCHER. NO PROBLEMS NOTED.
--- NOTE | 2018-04-08 15:00 | NUR ---
STAT UA AND LABS ORDERED BY DR. GANDHI. AND COMPLETE AT THIS TIME.
--- NOTE | 2018-04-08 17:00 | NUR ---
PT BEING CHANGED BACK TO INPATIENT DUE TO LOW POTASSIUM AND MAG LEVELS.
[2018-04-08 17:53] VITALS: BP 154/67; TEMP 98.3; Ht 160 cm; Wt 100.4 kg
[2018-04-08 20:12] VITALS: BP 161/60; TEMP 99
--- NOTE | 2018-04-08 20:20 | NUR ---
VALIDATION INTERN AT BEDSIDE TO START IV SITE, PT SEEMS A LITTLE UPSET THAT SHE WILL NEED AN IV. STATES SHE WILL ONLY LET VALIDATION INTERN STICK HER ONCE. 2024 OBTAINED 22G IV TO R HAND, GOOD BLOOD RETURN NOTED, FLUSHED EASILY WITH 10ML NS, SECURED WITH TAPE AND TEGADERM, PT TOLERATED WITH NO PROBLEMS.
--- NOTE | 2018-04-08 22:00 | NUR ---
GER Potts RIDER TO INFUSE, IV SITE TO R HAND WILL NOT INFUSE ON PUMP, PT STATES IT IS TENDER, ATTEMPTED TO FLUSH SITE WITH 10ML NS BUT IT WAS HARD TO FLUSH, NO BLOOD RETURN NOTED AT THIS TIME, INFORMED PT THAT NEW SITE WOULD HAVE TO BE STARTED TO GET K AND MAG VIA IV. PT REFUSES MORE THAN ONCE TO LET STAFF START ANOTHER IV, SHE STATES THE DOCTOR WILL HAVE TO GIVE HER THE MEDICATION BY MOUTH. [address] GANDHI TWICE VIA PHONE WITH NO ANSWER. CHARGE NURSE NOTIFIED.
--- NOTE | 2018-04-08 22:45 | NUR ---
PT ASKED AGAIN ABOUT LETTING STAFF START A NEW IV SITE, PT REFUSES STILL. D/C 22G IV FROM R HAND WITH NO PROBLEMS NOTED TO SITE. 2300 PT REPOSITIONED AND IS NOW WATCHING TV, NO DISTRESS NOTED.
[2018-04-08 23:58] VITALS: BP 180/70; TEMP 99
[2018-04-09 05:47] LABS: POTASSIUM 3.1 mmol/L (3.6-5.2)
[2018-04-09 05:59] VITALS: TEMP 98.8
[2018-04-09 08:00] VITALS: BP 119/65; TEMP 97.8
[2018-04-09 08:02] VITALS: BP 119/65; TEMP 97.8
[2018-04-09 12:00] VITALS: BP 189/68; TEMP 98.9
[2018-04-09 16:05] VITALS: BP 118/77; TEMP 98.5
--- NOTE | 2018-04-09 18:00 | NUR ---
PT ASSISTED BY 4 STAFF MEMBERS BACK INTO BED AT THIS TIME. NO PROBLEMS NOTED.
[2018-04-09 20:00] VITALS: BP 154/73; TEMP 99.1
[2018-04-10] VITALS (7 sets, daily range): BP systolic 161–186; BP diastolic 44–68; TEMP 97.2–99.3
--- NOTE | 2018-04-10 10:00 | NUR ---
EMS HERE TO HELP PT UP AND INTO CHAIR. PT FIRST ASSISTED TO BSC (PT HAS LARGE FORMED BM AND VOIDS APPROX 150MLS OF URINE). PT THEN ASSISTED BY 4 STAFF MEMBERS INTO CHAIR DR. SANDOVAL.
--- NOTE | 2018-04-10 12:20 | NUR ---
DR HUSSEIN HERE AT THIS TIME SEEING PT. ORDERS TO KEEP PT ON 5MG OF COUMADIN AND EXPLAINS TO PT THAT K AND MAG LEVELS ARE NOW WNL. PT ASK DR. HUSSEIN ABOUT HAVING TO GO TO RETIREMENT AND TELLS HIM ABOUT HER CONCERNS, TELLS PT THAT SHE WILL HAVE TO HAVE A TALK WITH HER DAUGHTER AND PCP (DR GANDHI) ABOUT THESE CONCERNS. PT HAS NO FUTHER QUESTIONS AT THIS TIME.
[2018-04-11 04:00] VITALS: BP 150/49; TEMP 98.6
[2018-04-11 05:56] LABS: POTASSIUM 4.7 mmol/L (3.6-5.2)
[2018-04-11 08:00] VITALS: BP 161/56; TEMP 98.9
--- NOTE | 2018-04-11 14:46 | NUR ---
1045 PT GONE TO FACILITY DIALYSIS VIA BED. 1415 PT RETURNED TO ROOM FROM DIALYSIS VIA BED. PT ALERT AND ORIENTED X4.
[2018-04-11 16:06] VITALS: BP 133/68; TEMP 98.8
[2018-04-11 20:00] VITALS: BP 154/64; TEMP 100.1
[2018-04-11 23:56] VITALS: BP 87/64; TEMP 99.6
[2018-04-12 04:00] VITALS: BP 173/47; TEMP 99.4
[2018-04-12 08:00] VITALS: BP 179/61; TEMP 98.9
[2018-04-12 12:00] VITALS: BP 170/58; TEMP 99
--- NOTE | 2018-04-12 16:30 | NUR ---
DISCHARGE INSTUCTIONS GIVEN TO ACCEPTING JAIL. PATIENT LEFT VIA [facility] VIA STRETCHER. NO DISTRESS NOTED.
== END 2018-04-12 16:50 | DRG 640 ==
LOC: MED/SURG 17:15
PROVIDERS: ADMIT Family Medicine
DX: E83.42 Hypomagnesemia (principal); N18.6 End stage renal disease; I12.0 Hypertensive chronic kidney disease with stage 5 chronic kidney disease or end stage renal disease; E87.6 Hypokalemia; K21.9 Gastro-esophageal reflux disease without esophagitis; E11.42 Type 2 diabetes mellitus with diabetic polyneuropathy; E11.22 Type 2 diabetes mellitus with diabetic chronic kidney disease; Z99.2 Dependence on renal dialysis; E03.8 Other specified hypothyroidism; M41.80 Other forms of scoliosis, site unspecified; D64.89 Other specified anemias; G47.33 Obstructive sleep apnea (adult) (pediatric); J44.9 Chronic obstructive pulmonary disease, unspecified; E66.01 Morbid (severe) obesity due to excess calories; R62.7 Adult failure to thrive
CPT/HCPCS: 36415; 80048; 83735; 85610; 94760; 96375; J1644

== ENCOUNTER 2018-06-19 11:16 | Outpatient (CLI) | payer OTHER | END 2018-06-19 11:19 | disposition short-term general hospital (02) | LOC: AMB 11:16 | DX: M25.512 Pain in left shoulder (principal); M79.672 Pain in left foot; M79.671 Pain in right foot | CPT/HCPCS: A0425; A0429 ==

== ENCOUNTER 2018-06-19 11:26 | Emergency (ER) | payer OTHER ==
[~2018-06-19] VITALS: Ht 160 cm; Wt 100.2 kg
[2018-06-19 11:38] VITALS: TEMP 98.6
[2018-06-19 17:28] VITALS: BP 124/78
== END 2018-06-19 17:25 | disposition home or self-care (01) ==
LOC: ED 11:26
DX: S93.692A Other sprain of left foot, initial encounter (principal); S93.691A Other sprain of right foot, initial encounter; S40.011A Contusion of right shoulder, initial encounter; M79.671 Pain in right foot; W01.0XXA Fall on same level from slipping, tripping and stumbling without subsequent striking against object, initial encounter; Y92.89 Other specified places as the place of occurrence of the external cause
CPT/HCPCS: 87502; 99283

== ENCOUNTER 2018-07-08 13:32 | Outpatient (CLI) | payer OTHER | END 2018-07-08 13:35 | disposition short-term general hospital (02) | LOC: AMB 13:32 | DX: R07.89 Other chest pain (principal); Z99.2 Dependence on renal dialysis | CPT/HCPCS: A0425; A0429 ==

== ENCOUNTER 2018-07-08 13:41 | Emergency (ER) | payer OTHER ==
[~2018-07-08] VITALS: Ht 160 cm; Wt 100.2 kg
[2018-07-08 13:44] VITALS: BP 127/46; TEMP 98
[2018-07-08 14:15] LABS: PLATELET COUNT 253 K/uL (152-353)
[2018-07-08 14:27] LABS: POTASSIUM 3.2 mmol/L (3.6-5.2); SODIUM 134 mmol/L (136-145)
== END 2018-07-08 20:30 | disposition home or self-care (01) ==
LOC: ED 13:41
PROVIDERS: Emergency Medicine
DX: R07.89 Other chest pain (principal)
CPT/HCPCS: 36415; 80053; 82550; 82553; 84484; 85027; 93005; 99284

== ENCOUNTER 2018-08-13 11:04 | Outpatient (CLI) | payer OTHER | END 2018-08-13 11:08 | disposition short-term general hospital (02) | LOC: AMB 11:04 | DX: R10.84 Generalized abdominal pain (principal) | CPT/HCPCS: A0425; A0429 ==

== ENCOUNTER 2018-08-13 11:10 | Emergency (ER) | payer OTHER ==
[~2018-08-13] VITALS: Ht 160 cm; Wt 89.8 kg
[2018-08-13 12:34] LABS: PLATELET COUNT 131 K/uL (152-353)
[2018-08-13 12:44] LABS: POTASSIUM 3.8 mmol/L (3.6-5.2)
[2018-08-13 13:15] VITALS: BP 116/47; TEMP 98
== END 2018-08-13 14:23 | disposition home or self-care (01) ==
LOC: ED 11:10
PROVIDERS: Family Medicine
DX: R10.84 Generalized abdominal pain (principal); R11.2 Nausea with vomiting, unspecified
CPT/HCPCS: 74022; 80053; 82150; 83690; 85027; 96372; 99283; J2405

== ENCOUNTER 2018-10-05 15:15 | Outpatient (CLI) | payer OTHER | END 2018-10-05 23:30 | disposition home or self-care (01) | LOC: LAB 15:15 | DX: I48.0 Paroxysmal atrial fibrillation (principal) | CPT/HCPCS: 85610 ==

== ENCOUNTER 2019-01-09 17:55 | Outpatient (CLI) | payer OTHER | END 2019-01-09 17:59 | disposition short-term general hospital (02) | LOC: AMB 17:55 | DX: R11.0 Nausea (principal); R53.1 Weakness | CPT/HCPCS: A0425; A0429 ==

== ENCOUNTER 2019-01-09 18:03 | Emergency (ER) | payer OTHER ==
[~2019-01-09] VITALS: Ht 160 cm; Wt 97.1 kg
[2019-01-09 19:11] LABS: PLATELET COUNT 173 K/uL (152-353)
[2019-01-09 19:16] LABS: POTASSIUM 3.9 mmol/L (3.6-5.2); SODIUM 136 mmol/L (136-145)
[2019-01-09 20:30] VITALS: BP 160/58; TEMP 98.1
== END 2019-01-09 20:53 | disposition home or self-care (01) ==
LOC: ED 18:03
PROVIDERS: Emergency Medicine
DX: R07.89 Other chest pain (principal)
CPT/HCPCS: 36415; 80053; 82150; 82550; 83690; 84484; 85027; 93005; 99283

== ENCOUNTER 2019-01-18 19:31 | Emergency (ER) | payer OTHER ==
[~2019-01-18] VITALS: Ht 160 cm; Wt 97.1 kg
[2019-01-18 19:52] LABS: PLATELET COUNT 151 K/uL (152-353)
[2019-01-18 19:57] LABS: POTASSIUM 3.1 mmol/L (3.6-5.2)
[2019-01-18 22:25] VITALS: BP 148/59; TEMP 98.2
== END 2019-01-18 22:20 | disposition home or self-care (01) ==
LOC: ED 19:31
PROVIDERS: Emergency Medicine
DX: R10.84 Generalized abdominal pain (principal); K59.09 Other constipation
CPT/HCPCS: 36415; 80053; 82150; 83690; 85027; 99283; J2405

== ENCOUNTER 2019-01-19 13:17 | Observation (INO) | payer OTHER ==
[~2019-01-19] VITALS: Ht 160 cm; Wt 97.1 kg
[2019-01-19 18:31] VITALS: BP 135/58; TEMP 98; Ht 160 cm; Wt 97.1 kg
[2019-01-19 20:00] VITALS: BP 160/56; TEMP 98.2
[2019-01-20] VITALS: BP 130/49; TEMP 99.4
[2019-01-20 04:00] VITALS: BP 145/54; TEMP 98.7
[2019-01-20 08:00] VITALS: BP 151/53; TEMP 98.4
[2019-01-20 12:00] VITALS: BP 142/49; TEMP 98
== END 2019-01-20 17:20 | disposition home or self-care (01) ==
LOC: MED/SURG 13:17
PROVIDERS: ADMIT Family Medicine
DX: K56.41 Fecal impaction (principal); I12.0 Hypertensive chronic kidney disease with stage 5 chronic kidney disease or end stage renal disease; E11.22 Type 2 diabetes mellitus with diabetic chronic kidney disease; N18.6 End stage renal disease; M41.80 Other forms of scoliosis, site unspecified
CPT/HCPCS: 99220; G0378; G0379

== ENCOUNTER 2019-02-03 20:17 | Emergency (ER) | payer OTHER ==
[~2019-02-03] VITALS: Ht 160 cm; Wt 97.1 kg
[2019-02-03 20:30] VITALS: BP 161/73; TEMP 97.4
[2019-02-03 22:15] LABS: PLATELET COUNT 214 K/uL (152-353)
== END 2019-02-04 02:21 | disposition home or self-care (01) ==
LOC: ED 20:17
PROVIDERS: Family Medicine
DX: K59.09 Other constipation (principal); N18.6 End stage renal disease; Z99.2 Dependence on renal dialysis; G89.29 Other chronic pain
CPT/HCPCS: 80053; 82272; 85027; 99283

== ENCOUNTER 2019-07-19 14:52 | Outpatient (CLI) | payer OTHER | END 2019-07-19 19:23 | disposition home or self-care (01) | LOC: LAB 14:52 | DX: D64.89 Other specified anemias (principal) | CPT/HCPCS: 85018 ==

== ENCOUNTER 2019-08-10 14:17 | Outpatient (CLI) | payer OTHER | END 2019-08-10 22:02 | disposition home or self-care (01) | LOC: RAD 14:17 | DX: M25.511 Pain in right shoulder (principal); M89.8X1 Other specified disorders of bone, shoulder; M79.601 Pain in right arm ==

== ENCOUNTER 2019-09-13 13:48 | Emergency (ER) | payer OTHER ==
[~2019-09-13] VITALS: Ht 160 cm; Wt 97.1 kg
[2019-09-13 15:27] LABS: PLATELET COUNT 162 K/uL (152-353)
[2019-09-13 15:34] VITALS: BP 136/64; TEMP 97.8
== END 2019-09-13 15:50 | disposition home or self-care (01) ==
LOC: ED 13:48
PROVIDERS: Emergency Medicine
DX: S40.012A Contusion of left shoulder, initial encounter (principal); S70.02XA Contusion of left hip, initial encounter; S30.0XXA Contusion of lower back and pelvis, initial encounter; W05.0XXA Fall from non-moving wheelchair, initial encounter; Y92.538 Other ambulatory health services establishments as the place of occurrence of the external cause
CPT/HCPCS: 85027; 99283

== ENCOUNTER 2019-09-26 11:22 | Outpatient (CLI) | payer OTHER | END 2019-09-26 21:48 | disposition home or self-care (01) | LOC: CT 11:22 | DX: R07.81 Pleurodynia (principal); R06.02 Shortness of breath; S29.8XXA Other specified injuries of thorax, initial encounter; I50.9 Heart failure, unspecified; J44.9 Chronic obstructive pulmonary disease, unspecified; N18.6 End stage renal disease; E66.9 Obesity, unspecified | CPT/HCPCS: 36415; 82565; 84520 ==

== ENCOUNTER 2019-12-27 23:44 | Emergency (ER) | payer OTHER ==
[~2019-12-27] VITALS: Ht 160 cm; Wt 97.1 kg
[2019-12-28 00:50] LABS: POTASSIUM 3.5 mmol/L (3.6-5.2)
[2019-12-28 01:02] LABS: PLATELET COUNT 215 K/uL (152-353)
[2019-12-28 02:02] VITALS: TEMP 99.2
[2019-12-28 09:15] VITALS: BP 154/62
== END 2019-12-28 09:20 | disposition home or self-care (01) ==
LOC: ED 23:44
PROVIDERS: Emergency Medicine
DX: J18.9 Pneumonia, unspecified organism (principal); D72.828 Other elevated white blood cell count; N18.6 End stage renal disease; Z99.2 Dependence on renal dialysis; Z03.818 Encounter for observation for suspected exposure to other biological agents ruled out
CPT/HCPCS: 80053; 83605; 85027; 85379; 87040; 87635; 96365; 96375; 99284; J0696; J2405; U0003

== ENCOUNTER 2020-01-30 10:28 | Outpatient (CLI) | payer OTHER | END 2020-01-30 19:34 | disposition home or self-care (01) | LOC: RAD 10:28 | DX: R05 Cough (principal) ==

== ENCOUNTER 2020-06-06 10:13 | Outpatient (CLI) | payer OTHER ==
[2020-06-06 11:16] LABS: POTASSIUM 3.1 mmol/L (3.6-5.2)
[2020-06-06 11:27] LABS: PLATELET COUNT 178 K/uL (152-353)
== END 2020-06-06 20:08 | disposition home or self-care (01) ==
LOC: CT 10:13
PROVIDERS: ATTEND Family Medicine
DX: K62.89 Other specified diseases of anus and rectum (principal); K59.00 Constipation, unspecified; N18.6 End stage renal disease; J44.9 Chronic obstructive pulmonary disease, unspecified; E11.9 Type 2 diabetes mellitus without complications
CPT/HCPCS: 36415; 80053; 84439; 84443; 85027

== ENCOUNTER 2020-09-02 21:57 | Emergency (ER) | payer OTHER ==
[~2020-09-02] VITALS: Ht 160 cm; Wt 97.1 kg
[2020-09-02 22:06] VITALS: TEMP 99.3
[2020-09-02 22:38] LABS: PLATELET COUNT 166 K/uL (152-353)
[2020-09-02 22:50] LABS: POTASSIUM 3.1 mmol/L (3.6-5.2)
[2020-09-03 07:41] VITALS: BP 175/69
== END 2020-09-03 08:48 | disposition short-term general hospital (02) ==
LOC: ED 21:57
PROVIDERS: Emergency Medicine Emergency Medical Services
DX: E87.79 Other fluid overload (principal); R06.09 Other forms of dyspnea
CPT/HCPCS: 36415; 80053; 85027; 87635; 96365; 99284; J0696; U0003

== ENCOUNTER 2020-11-12 10:07 | Outpatient (CLI) | payer OTHER ==
[2020-11-12 10:33] LABS: PLATELET COUNT 196 K/uL (152-353)
[2020-11-12 11:22] LABS: POTASSIUM 3.9 mmol/L (3.6-5.2)
== END 2020-11-12 21:54 | disposition home or self-care (01) ==
LOC: LAB 10:07
PROVIDERS: ATTEND Family Medicine
DX: S31.809A Unspecified open wound of unspecified buttock, initial encounter (principal); L89.329 Pressure ulcer of left buttock, unspecified stage; N18.6 End stage renal disease; E11.9 Type 2 diabetes mellitus without complications; E03.8 Other specified hypothyroidism; E78.00 Pure hypercholesterolemia, unspecified; K21.9 Gastro-esophageal reflux disease without esophagitis; I50.9 Heart failure, unspecified; I12.0 Hypertensive chronic kidney disease with stage 5 chronic kidney disease or end stage renal disease
CPT/HCPCS: 80053; 80061; 82306; 83036; 83735; 84439; 84443; 84550; 85027

== ENCOUNTER 2021-02-07 22:52 | Emergency (ER) | payer OTHER ==
[~2021-02-07] VITALS: Ht 157.5 cm; Wt 83.0 kg
[2021-02-07 23:19] LABS: PLATELET COUNT 189 K/uL (152-353)
[2021-02-07 23:26] LABS: POTASSIUM 2.9 mmol/L (3.6-5.2); SODIUM 136 mmol/L (136-145)
[2021-02-07 23:41] LABS: PARTIAL THROMBOPLASTIN TIME 27.9 SECONDS (24.5-33.6)
[2021-02-08 04:00] VITALS: BP 136/72; TEMP 99
== END 2021-02-08 04:00 | disposition home or self-care (01) ==
LOC: ED 22:52
PROVIDERS: Hospitalist
DX: N18.6 End stage renal disease (principal); Z99.2 Dependence on renal dialysis; R55 Syncope and collapse; E87.6 Hypokalemia; E86.0 Dehydration; Z20.822 Contact with and (suspected) exposure to COVID-19; R06.02 Shortness of breath
CPT/HCPCS: 36415; 80053; 80320; 82550; 83880; 84484; 85027; 85610; 85730; 87635; 93005; 96360; 99284; U0003

== ENCOUNTER 2022-01-15 16:39 | Emergency (ER) | payer OTHER ==
[~2022-01-15] VITALS: Ht 157.5 cm; Wt 85.7 kg
[2022-01-15 17:17] LABS: PLATELET COUNT 182 K/uL (152-353)
[2022-01-15 17:22] LABS: POTASSIUM 3.3 mmol/L (3.6-5.2)
[2022-01-15 17:55] LABS: PARTIAL THROMBOPLASTIN TIME 33.6 SECONDS (24.5-33.6)
[2022-01-15 21:18] VITALS: BP 147/57; TEMP 98.9
== END 2022-01-15 21:18 | disposition home or self-care (01) ==
LOC: ED 16:39
PROVIDERS: Emergency Medicine
DX: R07.89 Other chest pain (principal)
CPT/HCPCS: 80053; 83880; 84484; 85027; 85610; 85730; 93005; 96372; 99283; J2270; J2405

== ENCOUNTER 2022-06-05 10:47 | Emergency (ER) | payer OTHER ==
[~2022-06-05] VITALS: Ht 160 cm; Wt 78.5 kg
[2022-06-05 11:50] LABS: PLATELET COUNT 154 K/uL (152-353)
[2022-06-05 12:16] LABS: POTASSIUM 3.2 mmol/L (3.6-5.2); SODIUM 133 mmol/L (136-145)
[2022-06-05 13:30] VITALS: BP 184/72; TEMP 98
== END 2022-06-05 13:30 | disposition home or self-care (01) ==
LOC: ED 10:50
PROVIDERS: Family Medicine
DX: E87.6 Hypokalemia (principal); J44.1 Chronic obstructive pulmonary disease with (acute) exacerbation; N18.6 End stage renal disease; Z99.2 Dependence on renal dialysis; R05.8 Other specified cough; F17.220 Nicotine dependence, chewing tobacco, uncomplicated
CPT/HCPCS: 36415; 80053; 84484; 85027; 85379; 87502; 93005; 99283

== ENCOUNTER 2022-06-09 15:52 | Emergency (ER) | payer OTHER ==
[~2022-06-09] VITALS: Ht 160 cm; Wt 78.5 kg
[2022-06-09 15:53] VITALS: TEMP 97.4
[2022-06-09 16:29] LABS: PLATELET COUNT 201 K/uL (152-353)
[2022-06-09 16:33] LABS: POTASSIUM 3.1 mmol/L (3.6-5.2)
[2022-06-09 21:30] VITALS: BP 170/80
== END 2022-06-09 21:30 | disposition short-term general hospital (02) ==
LOC: ED 15:52
PROVIDERS: Emergency Medicine
DX: J69.0 Pneumonitis due to inhalation of food and vomit (principal); I50.1 Left ventricular failure, unspecified; N18.6 End stage renal disease; Z99.2 Dependence on renal dialysis; E87.6 Hypokalemia; J44.9 Chronic obstructive pulmonary disease, unspecified; Z99.81 Dependence on supplemental oxygen; G82.50 Quadriplegia, unspecified; Z11.52 Encounter for screening for COVID-19; F17.220 Nicotine dependence, chewing tobacco, uncomplicated
CPT/HCPCS: 80048; 83880; 84484; 85027; 87040; 87635; 96365; 99285; J0696; U0003

== ENCOUNTER 2022-10-30 13:41 | Emergency (ER) | payer OTHER ==
[~2022-10-30] VITALS: Ht 162.6 cm; Wt 73.5 kg
[2022-10-30 13:41] VITALS: TEMP 98.5
[2022-10-30 14:32] LABS: PLATELET COUNT 183 K/uL (152-353)
[2022-10-30 14:43] LABS: POTASSIUM 3.6 mmol/L (3.6-5.2); SODIUM 134 mmol/L (136-145)
[2022-10-30 16:06] LABS: PARTIAL THROMBOPLASTIN TIME 43.2 SECONDS (23.9-36.7)
[2022-10-30 17:45] VITALS: BP 106/46
== END 2022-10-30 17:45 ==
LOC: ED 13:41
PROVIDERS: Family Medicine
DX: E86.1 Hypovolemia (principal); R07.9 Chest pain, unspecified
CPT/HCPCS: 36415; 80053; 82550; 84484; 85027; 85610; 85730; 93005; 99284; J2930